=== PATIENT | male | born 1940 | race Caucasian/White ===

== ENCOUNTER → 2020-02-16 | Outpatient (CLI) | payer OTHER ==
--- NOTE | 2020-02-16 16:34 | CT ---
EXAMINATION TYPE: CT abdomen wo con DATE OF EXAM: 02/16/2020 COMPARISON: None HISTORY: 79-year-old male Abdominal pain after eating. TECHNIQUE: Contiguous axial scanning of the abdomen without IV contrast. Coronal and sagittal reconst ructions performed. CT DLP: 170 mGycm Automated exposure control for dose reduction was used. FINDINGS: Exam is very limited due to technique active appearance with a possibility of subcutaneous and intra- abdominal fat. Further limitation due to lack of IV contrast. There is pectus excavatum deformity. Strandy atelectasis or scarring in the lower lungs. 7 mm calcified granuloma left base. No pleural ef fusion. Some surgical material at the GE junction level. There is some type of heterogeneous low-density lesion along the periphery of the right hepatic dome measuring 2.7 x 1.7 cm. Inferiorly and superiorly, it may have a subcapsular location. Some internal fat density also seems to be present. Noncontrast appearance of the gallbladder and spleen show no gross abnormality. Mild diffuse low density thickening of the left adrenal gland, probably adrenal hyperplasia. Right adrenal gland shows no gross abnormality. Some vascular calcifications involving both kidneys. On the left, there is a 6 mm cortical hypodensit y posteriorly to small for accurate CT characterization, probable cyst. There are moderate prostatic calcifications abdominal aorta and visualized common iliac arteries with ectasia up to 2.5 cm. No dilated small bowel, free fluid, or free air seen. Mild to moderate stool. Suboptimal assessment for lymphadenopathy due to paucity of fat and lack of IV contrast. Oral contras t was administered. It has only progressed to the mid small bowel level. Pelvis not imaged. Osteopenia. Facet arthropathy lower lumbar spine. IMPRESSION: 1. VERY LIMITED ASSESSMENT DUE TO CACHECTIC STATE (CORRELATE FOR HISTORY OF WEIGHT LOSS) WITH SEVERE PAUCITY OF SUBCUTANEOUS AND INTRA-ABDOMINAL FAT AND LACK OF IV CONTRAST. 2. METALLIC DENSITY AT THE GE JUNCTION SUGGESTS PRIOR SURGERY HERE. CORRELATE WITH PATIENT'S SURGICAL AND MEDICAL HISTORY. 3. A 2.7 X 1.7 CM LESION ALONG THE PERIPHERY OF THE RIGHT HEPATIC DOME. SOME IMAGES SUGGEST A SUBCAPS ULAR LOCATION AND THERE IS ALSO SOME FAT DENSITY WITHIN. CONSIDER SEQUELA OF REMOTE INJURY. SIX-MONTH FOLLOW-UP CAN REASSESS. 4. THERE MAY BE LEFT ADRENAL HYPERPLASIA GIVEN LOW DENSITY THICKENING.
== END | disposition home or self-care (01) ==
LOC: RADCTMAIN 15:13
DX: K76.89 Other specified diseases of liver (principal); R64 Cachexia
CPT/HCPCS: 74150; Q9967

== ENCOUNTER 2020-03-20 12:02 | Inpatient (IN) | payer OTHER, MEDICARE ==
[2020-03-20] MEDS ORDERED: SODIUM CHLORIDE 0.9% 1,000 ML IV STA ×2 (12:26)
--- NOTE | 2020-03-20 12:50 | XR ---
EXAMINATION TYPE: XR chest 2V DATE OF EXAM: 03/20/2020 COMPARISON: 07/07/2013 HISTORY: Shortness of breath TECHNIQUE: Frontal and lateral views of the chest are obtained. FINDINGS: Scattered senescent parenchymal changes noted. Hyperinflation compatible with COPD. Severe upper lobe emphysematous change and parenchymal scarring left apical region. Increasing masslike area of opacity right suprahilar region may reflect pneumonia however underlying neoplasm is not excluded. CT correlation advised. Heart size is stable. Mediastinal structures are stable and grossly unremarkable. No evidence for hilar prominence. Degenerative changes dorsal spine. IMPRESSION: 1. Increasing masslike area of opacity right suprahilar region may reflect pneumonia however underlyi ng neoplasm is not excluded. CT correlation advised.
[2020-03-20 12:56] LABS: Basophils # (A) 0.1 k/uL (0-0.2); Basophils % (A) 0 %; Eosinophils # (A) 0.1 k/uL (0-0.7); Eosinophils % (A) 0 %; HCT 45.5 % (39.0-53.0); HGB 14.5 gm/dL (13.0-17.5); Lymphocytes # (A) 0.6 k/uL (1.0-4.8); Lymphocytes % (A) 3 %; MCH 31.5 pg (25.0-35.0); MCHC 31.9 g/dL (31.0-37.0); MCV 98.5 fL (80.0-100.0); Mean Platelet Volume 7.7; Monocytes # (A) 1.3 k/uL (0-1.0); Monocytes % (A) 6 %; Neutrophils # (A) 20.9 k/uL (1.3-7.7); Neutrophils % (A) 90 %; Platelet Count 316 k/uL (150-450); RBC 4.62 m/uL (4.30-5.90); RDW 12.8 % (11.5-15.5); WBC 23.2 k/uL (3.8-10.6)
[2020-03-20 13:07] LABS: Albumin 3.5 g/dL (3.5-5.0); Calcium 8.8 mg/dL (8.4-10.2); Magnesium 2.6 mg/dL (1.6-2.3); Potassium 4.9 mmol/L (3.5-5.1); Total Bilirubin 1.4 mg/dL (0.2-1.3); Total Protein 6.8 g/dL (6.3-8.2)
--- NOTE | 2020-03-20 13:21 | ED ---
SOB HPI - General Chief Complaint: Shortness of Breath Stated Complaint: ALIDA Time Seen by Provider: 03/20/20 12:02 Source: patient, EMS, RN notes reviewed, old records reviewed Mode of arrival: EMS Limitations: physical limitation - History of Present Illness Initial Comments: This is a 80-year-old male with a history of COPD among other problems who pr esents with complaints of breathing for past several days. Is brought in by EMS today. He she was found to have saturations in the 70s. After 2 updrafts and IV steroids and did improve somewhat. He states he is feeling somewhat better though he still short of breath. He denies any overt fevers chills sweats he does have a cough he states it does happen this time a year usually with his COPD. MD Complaint: shortness of breath - Related Data Home Medications Medication Instructions Recorded Confirmed Albuterol Sulfate [Proair Hfa] 2 puff INHALATION RT-QID PRN 03/20/20 03/20/20 Aspirin 81 mg PO DAILY 03/20/20 03/20/20 Budesonide/Formoterol Fumarate 2 puff INHALATION RT-BID 03/20/20 03/20/20 [Budesonide-Formoterol 160-4.5] Cetirizine HCl 10 mg PO DAILY 03/20/20 03/20/20 Metoprolol Tartrate [Lopressor] 50 mg PO BID 03/20/20 03/20/20 Sodium Chloride 0.65% Nasal [Deep 2 spray NASAL BID 03/20/20 03/20/20 Sea (Saline)] Tiotropium [place] [Spiriva 2 puff INHALATION RT-DAILY 03/20/20 03/20/20 Respimat] Allergies Allergy/AdvReac Type Severity Reaction Status Date / Time No Known Allergies Allergy Verified 03/20/20 13:31 Review of Systems ROS Statement: Those systems with pertinent positive or pertinent negative responses have been documented in the HPI. ROS Other: All systems not noted in ROS Statement are negative. Past Medical History Past Medical History: Coronary Artery Disease (CAD), COPD, Hypertension Additional Past Medical History / Comment(s): bladder cancer History of Any Multi-Drug Resistant Organisms: None Reported Past Psychological History: No Psychological Hx Reported Smoking Status: Current every day smoker Past Alcohol Use History: None Reported Past Drug Use History: None Reported General Exam - General Exam Comments Initial Comments: This is a 80-year-old well-developed cachectic appearing male who is awake alert oriented 3 Limitations: physical limitation General appearance: alert, in no apparent distress Head exam: Present: atraumatic, normocephalic, normal inspection Eye exam: Present: normal appearance, PERRL, EOMI. Absent: scleral icterus, conjunctival injection, periorbital swelling ENT exam: Present: mucous membranes dry Neck exam: Present: normal inspection. Absent: tenderness, meningismus, lymphadenopathy Respiratory exam: Present: decreased breath sounds. Absent: respiratory distress, wheezes, rales, rhonchi, stridor Cardiovascular Exam: Present: normal rhythm, tachycardia, normal heart sounds. Absent: systolic murmur, diastolic murmur, rubs, gallop, clicks GI/Abdominal exam: Present: soft, normal bowel sounds. Absent: distended, tenderness, guarding, rebound, rigid Extremities exam: Present: normal inspection, full ROM, normal capillary refill. Absent: tenderness, pedal edema, joint swelling, calf tenderness Back exam: Present: normal inspection Neurological exam: Present: alert, oriented X3, CN II-XII intact Psychiatric exam: Present: normal affect, normal mood Skin exam: Present: warm, dry, intact, normal color. Absent: rash Course Vital Signs 03/20/20 03/20/20 03/20/20 12:04 12:30 13:00 Temperature 97 F L Pulse Rate 125 H 105 H 94 Respiratory 26 H Rate Blood Pressure 113/81 113/81 106/68 O2 Sat by Pulse 93 L 98 98 Oximetry - Reevaluation(s) Reevaluation #1: 03/20/20 14:31 He lactic acid elevation is likely on the basis of dehydration though infectious processes not ruled out Medical Decision Making - Medical Decision Making Patient did get some relief after the initial treatment I did discuss the findings with him the patient will be admitted with further evaluation. I did discuss case with Dr. Perkins. Patient did report that he had a lot of weight loss over last 6 months and is not exactly sure why he has been treated outpatient and evaluated outpatient less far - Lab Data Result diagrams: 03/20/20 12:29 03/20/20 12:29 Lab Results 03/20/20 03/20/20 03/20/20 Range/Units 12:29 12:29 12:29 WBC 23.2 H (3.8-10.6) k/uL RBC 4.62 (4.30-5.90) m/uL Hgb 14.5 (13.0-17.5) gm/dL Hct 45.5 (39.0-53.0) % MCV 98.5 (80.0-100.0) fL MCH 31.5 (25.0-35.0) pg MCHC 31.9 (31.0-37.0) g/dL RDW 12.8 (11.5-15.5) % Plt Count 316 (150-450) k/uL MPV 7.7 Neutrophils % 90 % Lymphocytes % 3 % Monocytes % 6 % Eosinophils % 0 % Basophils % 0 % Neutrophils # 20.9 H (1.3-7.7) k/uL Lymphocytes # 0.6 L (1.0-4.8) k/uL Monocytes # 1.3 H (0-1.0) k/uL Eosinophils # 0.1 (0-0.7) k/uL Basophils # 0.1 (0-0.2) k/uL PT 13.3 H (9.0-12.0) sec INR 1.3 H (<1.2) APTT 23.7 (22.0-30.0) sec Sodium 137 (137-145) mmol/L Potassium 4.9 (3.5-5.1) mmol/L Chloride 103 (98-107) mmol/L Carbon Dioxide 16 L (22-30) mmol/L Anion Gap 18 mmol/L BUN 75 H (9-20) mg/dL Creatinine 1.55 H (0.66-1.25) mg/dL Est GFR (CKD-EPI)AfAm 49 (>60 ml/min/1.73 sqM) Est GFR (CKD-EPI)NonAf 42 (>60 ml/min/1.73 sqM) Glucose 143 H (74-99) mg/dL Plasma Lactic Acid Deniz (0.7-2.0) mmol/L Calcium 8.8 (8.4-10.2) mg/dL Magnesium 2.6 H (1.6-2.3) mg/dL Total Bilirubin 1.4 H (0.2-1.3) mg/dL AST 31 (17-59) U/L ALT 25 (4-49) U/L Alkaline Phosphatase 118 (38-126) U/L Creatine Kinase 41 L (55-170) U/L Troponin I (0.000-0.034) ng/mL NT-Pro-B Natriuret Pep pg/mL Total Protein 6.8 (6.3-8.2) g/dL Albumin 3.5 (3.5-5.0) g/dL 03/20/20 03/20/20 03/20/20 Range/Units 12:29 12:29 12:29 WBC (3.8-10.6) k/uL RBC (4.30-5.90) m/uL Hgb (13.0-17.5) gm/dL Hct (39.0-53.0) % MCV (80.0-100.0) fL MCH (25.0-35.0) pg MCHC (31.0-37.0) g/dL RDW (11.5-15.5) % Plt Count (150-450) k/uL MPV Neutrophils % % Lymphocytes % % Monocytes % % Eosinophils % % Basophils % % Neutrophils # (1.3-7.7) k/uL Lymphocytes # (1.0-4.8) k/uL Monocytes # (0-1.0) k/uL Eosinophils # (0-0.7) k/uL Basophils # (0-0.2) k/uL PT (9.0-12.0) sec INR (<1.2) APTT (22.0-30.0) sec Sodium (137-145) mmol/L Potassium (3.5-5.1) mmol/L Chloride (98-107) mmol/L Carbon Dioxide (22-30) mmol/L Anion Gap mmol/L BUN (9-20) mg/dL Creatinine (0.66-1.25) mg/dL Est GFR (CKD-EPI)AfAm (>60 ml/min/1.73 sqM) Est GFR (CKD-EPI)NonAf (>60 ml/min/1.73 sqM) Glucose (74-99) mg/dL Plasma Lactic Acid Deniz 3.2 H* (0.7-2.0) mmol/L Calcium (8.4-10.2) mg/dL Magnesium (1.6-2.3) mg/dL Total Bilirubin (0.2-1.3) mg/dL AST (17-59) U/L ALT (4-49) U/L Alkaline Phosphatase (38-126) U/L Creatine Kinase (55-170) U/L Troponin I <0.012 (0.000-0.034) ng/mL NT-Pro-B Natriuret Pep 1790 pg/mL Total Protein (6.3-8.2) g/dL Albumin (3.5-5.0) g/dL - EKG Data -: EKG Interpreted by Me EKG shows normal: sinus rhythm (Sinus tachycardia rate 120 AR interval 128 QRS 76 QT since QTC 364/[address] configuration.) - Radiology Data Radiology results: report reviewed (I did review the imaging and report evidence a right upper lobe infiltrate cancer is suspected in the differential.), image reviewed Critical Care Time Critical Care Time: Yes Total Critical Care Time: 31 Critical Care Time: 31 minutes of critical care time which includes initial presentation with history physical labs x-rays discussed with paramedics upon arrival. Reevaluation the patient response to therapy review of old charting discussed with the admitting physician admission orders and documentation of the above Disposition Clinical Impression: Acute exacerbation of chronic obstructive pulmonary disease, Right upper lobe pneumonia, Dehydration, Lactic acidosis, Renal insufficiency syndrome, Failure to thrive, History of bladder cancer Disposition: ADMITTED IP TO THIS HOSP Condition: Fair Referrals: [facility],Clinic [Primary Care Provider] - 1-2 days
[2020-03-20 13:29] LABS: INR 1.3 (<1.2); Partial Thromboplastin Time 23.7 sec (22.0-30.0); Prothrombin Time 13.3 sec (9.0-12.0)
[2020-03-20] MEDS ORDERED: cefTRIAXone IN SWFI 1,000 MG/10 ML SYRINGE IVP STA (13:52)
[2020-03-20] MEDS ORDERED: PNEUMONIA PROTOCOL UTILIZED 1 EACH MISC PO PRN (14:37)
[2020-03-20] MEDS ORDERED: AZITHROMYCIN 500 MG in SODIUM CHLORIDE 0.9% 250 ML IVPB STA (14:58)
[2020-03-20 15:08] LABS: INR 1.1 (<1.2); Partial Thromboplastin Time 22.2 sec (22.0-30.0); Prothrombin Time 11.4 sec (9.0-12.0)
[2020-03-20 15:12] LABS: D-Dimer 4.98 mg/L FEU (<0.60)
[2020-03-20 15:17] LABS: SARS-CoV-2 RNA Rapid Abbott Not Detected (Not Detectd)
[2020-03-20] MEDS: IPRATROPIUM-ALBUTEROL 3 ML NEB INHALATION SCH ×2 (15:41→18:55)
[2020-03-20 15:49] LABS: C Reactive Protein 315.6 mg/L (<10.0); Magnesium 2.5 mg/dL (1.6-2.3)
--- NOTE | 2020-03-20 16:13 | CT ---
EXAMINATION TYPE: CT angio chest DATE OF EXAM: 03/20/2020 3:37 PM COMPARISON: Chest x-ray earlier today and older study 2013 HISTORY: Elevated d-dimer. CT DLP: 160.4 mGycm Automated exposure control for dose reduction was used. CONTRAST: CTA scan of the thorax is performed with IV Contrast, patient injected with 70 mL of Isovue 370, pulm onary embolism protocol. MIP images are created and reviewed. FINDINGS: LUNGS: Advanced underlying emphysematous change with pulmonary fibrotic change in the upper lungs. Co rresponding x-ray abnormality there is masslike low dense consolidation in the anterior inferior aspe ct right upper lobe. Some transversing small arterial vessels and patchy aeration is thought present. There is however more suspicious anterior right hilar mass or masslike consolidation inferior to thi s measuring 2.7 x 2.2 cm on image 91 abutting the mediastinum. No crossing vessels at this level note d. MEDIASTINUM: There is satisfactory enhancement of the pulmonary artery and its branches, there is no CT evidence for pulmonary embolism. There are no greater than 1 cm hilar or mediastinal lymph nodes . No cardiomegaly or pericardial effusion is seen. Coronary artery calcifications are present. Enhancement of thoracic aorta without aneurysm or dissect ion. Pectus excavatum deformity. Mass effect and right atrium noted. OTHER: Surgical clips near gastroesophageal junction. 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 Follow-up ultrasound advised to assess for AAA. IMPRESSION: 1. No CT evidence for acute pulmonary embolism. 2. Advanced emphysematous change with pulmonary fibrotic change greatest in the upper lungs. Do suspe ct some focal consolidation and/or atelectasis anterior inferior right upper lobe. More suspicious an terior right midlung mass or masslike consolidation noted. Underlying neoplasm is not excluded. Consi elizabeth follow-up PET/CT after treatment.
[2020-03-20] MEDS: SODIUM CHLORIDE 0.9% 1,000 ML IV SCH ×2 (17:29→22:50)
[2020-03-20] MEDS: SYMBICORT 160-4.5 MCG INHALER INHALATION SCH (18:55)
[2020-03-20] MEDS ORDERED: HYDROcodone/APAP 5-325MG 1 EACH TAB PO PRN (18:57)
[2020-03-20] MEDS ORDERED: TEMAZEPAM 15 MG CAP PO PRN (18:57)
[2020-03-20] MEDS ORDERED: Potassium Replacement Protocol 1 EACH MISC MISCELLANE PRN (19:18)
[2020-03-20] MEDS ORDERED: Magnesium Replacement Protocol 1 EACH MISC MISCELLANE PRN (19:18)
[2020-03-20] MEDS ORDERED: SODIUM CHLORIDE 0.9% 500 ML 500 ML IV ONE (19:23)
[2020-03-20] MEDS: ENOXAPARIN 40 MG/0.4 ML SYRINGE SQ SCH (19:30)
[2020-03-20] MEDS: methylPREDNISolone SOD SUCCI 125 MG/2 ML VIAL IV SCH (19:30)
--- NOTE | 2020-03-20 20:27 | HP ---
HISTORY AND PHYSICAL DATE OF SERVICE: 03/20/2020 CHIEF COMPLAINT: Shortness of breath. HISTORY OF PRESENT ILLNESS: This 80-year-old gentleman with a past medical history of COPD, CAD, hypertension, history of difficulty in breathing, being followed by a [facility] in the outpatient setting, was not feeling well over the past several weeks. The patient had increasing shortness of breath. The patient was also unable to eat. The patient lost about 50 pounds in the last 2 years. The patient is extremely emaciated. His current BMI is only 13.2. In the ER, the patient had a chest x-ray and subsequently a CT scan of the chest which showed significant bilateral pneumonia, right more than the left, as well as significant changes of COPD as well as clips near the GE junction, and some aneurysmal dilatation in the abdominal aorta was also noted. Suspicious 2.5 cm, 2.2 mm right hilar mass was also suspected. The patient was admitted for further evaluation and treatment. There is no history of any fever, rigor or chills. No history of headache, loss of consciousness. No history of any contact with the COVID infection, either. PAST MEDICAL HISTORY: History of CAD, COPD, hypertension, history of bladder cancer with urostomy. MEDICATIONS: Spiriva, sodium chloride, Lopressor, cetirizine, Symbicort, aspirin and albuterol. ALLERGIES: NONE. FAMILY HISTORY: No history of heart disease or strokes in the family. SOCIAL HISTORY: History of smoking. Occasional alcohol intake. REVIEW OF SYSTEMS: ENT: Diminished hearing. Diminished vision. CARDIOVASCULAR SYSTEM: As mentioned earlier. RESPIRATORY SYSTEM: As mentioned earlier. GI: No nausea, vomiting. : No dysuria or retention. NERVOUS SYSTEM: No numbness, weakness. ALLERGY/IMMUNOLOGY: No asthma, hayfever. MUSCULOSKELETAL: As mentioned earlier. HEMATOLOGY/ONCOLOGY: No history of anemia. ENDOCRINE: No history of diabetes, hypothyroidism. CONSTITUTIONAL: As mentioned earlier. DERMATOLOGY: Negative. RHEUMATOLOGY: Negative. PSYCHIATRY: As mentioned earlier. PHYSICAL EXAMINATION: Patient alert and oriented x3. Pulse 82, blood pressure 91/50, respiration 18, temperature 97.8, pulse ox 98% on 3 L. HEENT: Conjunctivae normal. NECK: No jugular venous distention. CARDIOVASCULAR SYSTEM: S1, S2 muffled. RESPIRATORY SYSTEM: Breath sounds diminished at the bases. A few scattered rhonchi and crackles. Expiratory wheezing also present. ABDOMEN: Soft, non-tender. No mass palpable. LEGS: No edema. No swelling. NERVOUS SYSTEM: Higher functions as mentioned earlier. Moves all 4 limbs. No focal motor or sensory deficit. LYMPHATICS: No lymph node palpable in neck, axillae or groin. SKIN: No ulcer, rash, bleeding. JOINTS: No active deforming arthropathy. LABS: WBC 23.2, INR 1.3, and D-dimer is 4.98. Lactic acid is 3.2. CRP is 315. COVID-19 rapid test is negative. Influenza is negative. ASSESSMENT: 1. Chronic obstructive pulmonary disease, acute exacerbation, with acute bilateral pneumonia, right more than the left, possibly Gram-negative with possible sepsis, present on admission. 2. Rule out COVID-19. 3. Increased creatinine with acute renal failure, prerenal acute tubular necrosis. 4. Elevated lactic acid, possibly secondary to sepsis. 5. Elevated D-dimer without any evidence of pulmonary embolism. 6. Increased white count, possibly secondary to sepsis. 7. Significant weight loss, possibly secondary to malignancy. 8. Severe protein-calorie malnutrition with body mass index of 13.2. 9. History of coronary artery disease. 10.History of chronic obstructive pulmonary disease. 11.History of hypertension. 12.History of bladder cancer with urostomy. 13.History of tachycardia. 14.History of ruptured duodenal ulcer at age of 31. 15.History of nicotine dependence. RECOMMENDATIONS AND DISCUSSION: In this 80-year-old gentleman who presented with multiple medical issues, at this time I recommend to continue the current medications, continue with symptomatic treatment. Otherwise, we will initiate broad-spectrum IV antibiotics and bronchodilators. I would also recommend evaluation by Dr. Harmon for possible bronchoscopy and other evaluations as well. Dietary evaluation, nutrition supplements. DVT prophylaxis. COVID-19 has been negative. I would also recommend infectious disease evaluation regarding the patient who had some raised inflammatory parameters which could very well be due to pneumonia, but we will continue to monitor. The prognosis is guarded because of multiple complex medical issues. Further recommendations to follow. A copy of this dictation is being forwarded to KRUNAL, Dr. Brandon, who is the primary physician. MMODL / MACN: [id number] /
[2020-03-20] MEDS: METOPROLOL TARTRATE 50 MG TAB PO SCH (20:44)
[2020-03-20 21:31] LABS: Glucose,Whole Blood 241 mg/dL (75-99)
[2020-03-20] MEDS: PIPERACILLIN-TAZOBACTAM 3.375 GM in SODIUM CHLORIDE 0.9% 100 ML IVPB SCH (21:33)
[2020-03-20] MEDS: INSULIN ASPART (NovoLOG) 100 UNIT/ML VIAL SQ SCH (21:33)
[2020-03-20] MEDS: SODIUM CHLORIDE 0.65% NASAL SPRAY 44 ML BTL NASAL SCH (21:34)
[2020-03-21 00:53] LABS: Ferritin 1808.3 ng/mL (22.0-322.0)
[2020-03-21] MEDS: methylPREDNISolone SOD SUCCI 125 MG/2 ML VIAL IV SCH ×5 (00:54→23:54)
[2020-03-21] MEDS: IPRATROPIUM-ALBUTEROL 3 ML NEB INHALATION SCH ×5 (03:15→20:14)
[2020-03-21] MEDS: PIPERACILLIN-TAZOBACTAM 3.375 GM in SODIUM CHLORIDE 0.9% 100 ML IVPB SCH ×3 (04:57→21:12)
[2020-03-21 06:58] LABS: Basophils % (A) 0 %; Eosinophils % (A) 0 %; HCT 33.3 % (39.0-53.0); Lymphocytes # (A) 0.3 k/uL (1.0-4.8); Lymphocytes % (A) 1 %; MCH 31.4 pg (25.0-35.0); MCHC 31.6 g/dL (31.0-37.0); MCV 99.4 fL (80.0-100.0); Mean Platelet Volume 7.2; Monocytes # (A) 0.4 k/uL (0-1.0); Monocytes % (A) 2 %; Neutrophils # (A) 17.9 k/uL (1.3-7.7); Neutrophils % (A) 96 %; Platelet Count 284 k/uL (150-450); RBC 3.35 m/uL (4.30-5.90); RDW 13.5 % (11.5-15.5); WBC 18.6 k/uL (3.8-10.6)
[2020-03-21 07:05] LABS: HGB 10.5 gm/dL (13.0-17.5)
[2020-03-21] MEDS: IOPAMIDOL CONTRAST (ORAL USE) VIAL PO PRN ×2 (07:12→08:18)
[2020-03-21] MEDS ORDERED: NON FORMULARY DRUG (Tiotropium Bromide [Spiriva Respimat] 4 GM Mist.Inhal) INHALATION SCH (08:00)
[2020-03-21] MEDS: INSULIN ASPART (NovoLOG) 100 UNIT/ML VIAL SQ SCH ×4 (08:16→21:11)
[2020-03-21] MEDS: METOPROLOL TARTRATE 50 MG TAB PO SCH ×2 (08:16→20:37)
[2020-03-21] MEDS: SODIUM CHLORIDE 0.65% NASAL SPRAY 44 ML BTL NASAL SCH ×2 (09:20→21:12)
[2020-03-21] MEDS: ENOXAPARIN 40 MG/0.4 ML SYRINGE SQ SCH (09:20)
[2020-03-21] MEDS: LORATADINE 10 MG TAB PO SCH (09:20)
[2020-03-21] MEDS: ASPIRIN 81 MG PO SCH (09:20)
[2020-03-21] MEDS: SYMBICORT 160-4.5 MCG INHALER INHALATION SCH ×2 (09:24→20:14)
--- NOTE | 2020-03-21 09:26 | XR ---
EXAMINATION TYPE: XR chest 2V DATE OF EXAM: 03/21/2020 COMPARISON: 03/20/2020 HISTORY: Shortness of breath TECHNIQUE: Frontal and lateral views of the chest are obtained. FINDINGS: Scattered senescent parenchymal changes noted. Hyperinflation compatible with COPD. Apical scarring. Right Suprahilar infiltrate is again noted. Underlying mass is not excluded. Heart size is stable. Mediastinal structures are stable and grossly unremarkable. No evidence for hilar prominence. Degenerative changes dorsal spine. IMPRESSION: 1. Right Suprahilar infiltrate is again noted. Underlying mass is not excluded.
--- NOTE | 2020-03-21 09:41 | CT ---
EXAMINATION TYPE: CT abdomen pelvis wo con DATE OF EXAM: 03/21/2020 COMPARISON: 02/16/2020 HISTORY: Unexplained weight loss. CT DLP: 279.4 mGycm Examination of the solid and hollow viscera is limited given the lack of contrast. FINDINGS: LUNG BASES: Severe pectus excavatum deformity. Myeloma left lower lobe. No evidence for nodule. No ev idence for infiltrate. LIVER/GB: The gallbladder is unremarkable. Nonspecific hepatic lesion at the dome of the liver measur es approximately 2.1 cm in greatest dimension. PANCREAS: No pancreatic mass identified. No inflammatory process seen. SPLEEN: No evidence for splenomegaly. No intrasplenic lesions seen. ADRENALS: No adrenal nodules identified. Left adrenal hyperplasia noted. KIDNEYS: Contrast is seen within the renal collecting systems from a recent CTA of the chest. No evid ence for renal mass. No nephrolithiasis. No hydronephrosis. BOWEL: No evidence of bowel obstruction. No inflammatory process. Surgical changes in the rectosigmo id region. Moderate fecal stasis. Lymph nodes: No evidence for adenopathy greater than 1 cm. Abdominal aorta: Diffuse Atheromatous changes seen. No evidence for aneurysm. Genital organs: No significant abnormality. Other: The patient is markedly cachectic. Now prosthesis is noted. IMPRESSION: 1. Patient is markedly cachectic limiting evaluation. 2. No definite acute intra-abdominal process. Moderate fecal stasis seen.
[2020-03-21 10:00] LABS: African American GFR (CKD) 66.3 (60.0-200.0); Anion Gap 6.7 mmol/L (4.00-12.00); BUN/Creat Ratio 49.17 Ratio (12.00-20.00); C Reactive Protein 23.4 mg/dL (0.0-0.8); Carbon Dioxide 22.3 mmol/L (21.6-31.8); Magnesium 2.3 mg/dL (1.5-2.4); Non-African American GFR(CKD) 57.2 (60.0-200.0); Potassium 3.8 mmol/L (3.5-5.5)
[2020-03-21 11:22] LABS: Glucose,Whole Blood 229 mg/dL (75-99)
[2020-03-21] MEDS: THIAMINE 100 MG TAB PO SCH (11:59)
[2020-03-21] MEDS: MULTIVITAMINS, THERA 1 EACH TAB PO SCH (11:59)
[2020-03-21] MEDS: FOLIC ACID 1 MG TAB PO SCH (11:59)
[2020-03-21 14:08] VITALS: BMI 13.1
--- NOTE | 2020-03-21 14:35 | P.CNPUL ---
History of Present Illness Consult date: 03/21/20 Requesting physician: Kinza Perkins Reason for consult: dyspnea, abnormal CXR/CT Chief complaint: Shortness of breath, cough, congestion History of present illness: This is a pleasant frail, cachectic appearing 80-year-old gentleman who follows with Bridget Bradford at the [facility]. He has a history of coronary artery disease, hypertension, chronic obstructive pulmonary disease. He has a 60 year pack per day smoking history. He is maintained on Symbicort, Spiriva, pro-air in the outpatient setting. He has been having increasing shortness of breath cough and congestion. He admits to a 30 pound weight loss over the past year. He is currently 45 kg. Denies any hemoptysis. CT angiogram ruled out pulmonary embolism. There is advanced emphysematous changes with pulmonary fibrotic ch anges greatest in the upper lobes. Some focal consolidation and atelectasis anterior inferior right upper lobe. More suspicious anterior right midlung mass or masslike consolidation noted. Neoplasm not excluded. He is seen today in consultation on the regular medical floor. He is currently sitting up in a chair at the bedside. Awake and alert in no acute distress. Currently maintaining O2 saturations in the mid 90s on 3 L/m per nasal cannula. White count 18.6. Hemoglobin 10.5. Lymphocytes 0.3. D-dimer 3.87. Sodium 142. Potassium 3.8. Creatinine 1.2. Ferritin level MDCCCVIII. LDH 567. C-reactive protein 315 down to 23 today. Pro-calcitonin 3.82. Influenza screen negative. Coronavirus screen negative. He has been initiated on DuoNeb inhalations, Symbicort, IV Solu-Medrol. Antibiotics in the form of Zosyn. Review of Systems REVIEW OF SYSTEMS: CONSTITUTIONAL: Positive for 30 pound weight loss. EYES: Denies change in vision. EARS, NOSE, MOUTH, THROAT: Denies headaches, denies sore throat. CARDIOVASCULAR: Denies chest pain, palpitations or syncopal episodes. RESPIRATORY: Positive for shortness of breath, cough, congestion no hemoptysis. GASTROINTESTINAL: Denies change in appetite, denies abdominal pain GENITOURINARY: Denies hematuria, denies infections. MUSKULOSKELETAL: Denies pain, denies swelling. INTEGUMENTARY: Denies rash, denies eczema. NEUROLOGICAL: Denies recent memory loss, no recent seizure activity. PSYCHIATRIC: Denies anxiety, denies depression. HEMATOLOGIC/LYMPHATIC: Denies anemia, denies enlarged lymph nodes. Past Medical History Past Medical History: Coronary Artery Disease (CAD), COPD, Hypertension Additional Past Medical History / Comment(s): Pt states past several days increase difficulty breathing/occasional double vision with r eye/stomach pain past few months and had a cat scan approximately one month ago but never got the results, bladder cancer with urostomy, tachycardia-pt does not recall type, ruptured duodenal ulcer at age 31. History of Any Multi-Drug Resistant Organisms: None Reported Past Surgical History: Bladder Surgery, Orthopedic Surgery Additional Past Surgical History / Comment(s): Bladder removed/urostomy, laparotomy for ruptured duodenal ulcer/pt unsure if part of stomach was removed, colonoscopies, penile implant, bilateral cataract removals/lens implants, L hip fracture with surgical repair/hardware. Past Anesthesia/Blood Transfusion Reactions: No Reported Reaction Additional Past Anesthesia/Blood Transfusion Reaction / Comment(s): Pt is uncertain if he has received blood in the past. Smoking Status: Current every day smoker - Past Family History Mother Family Medical History: No Reported History Additional Family Medical History / Comment(s): Mother lived into her 80s. Father Family Medical History: No Reported History Additional Family Medical History / Comment(s): Father lived into his 80s. Medications and Allergies Home Medications Medication Instructions Recorded Confirmed Type Albuterol Sulfate [Proair Hfa] 2 puff INHALATION RT-QID PRN 03/20/20 03/20/20 History Aspirin 81 mg PO DAILY 03/20/20 03/20/20 History Budesonide/Formoterol Fumarate 2 puff INHALATION RT-BID 03/20/20 03/20/20 History [Budesonide-Formoterol 160-4.5] Cetirizine HCl 10 mg PO DAILY 03/20/20 03/20/20 History Metoprolol Tartrate [Lopressor] 50 mg PO BID 03/20/20 03/20/20 History Sodium Chloride 0.65% Nasal [Deep 2 spray NASAL BID 03/20/20 03/20/20 History Sea (Saline)] Tiotropium [place] [Spiriva 2 puff INHALATION RT-DAILY 03/20/20 03/20/20 History Respimat] Allergies Allergy/AdvReac Type Severity Reaction Status Date / Time No Known Allergies Allergy Verified 03/20/20 13:31 Physical Exam Vitals: Vital Signs Temp Pulse Pulse Resp BP BP Pulse Ox 03/21/20 12:45 97.8 F 67 16 84/42 97 03/21/20 12:32 85 03/21/20 12:18 84 03/21/20 07:45 97.6 F 69 18 87/39 96 03/21/20 01:14 97.5 F L 73 12 93/43 98 03/20/20 21:41 77 92/49 03/20/20 20:34 91/46 03/20/20 19:49 97.6 F 87 16 77/46 99 03/20/20 19:10 90 18 03/20/20 18:56 92 18 03/20/20 17:55 18 03/20/20 17:16 97.8 F 82 18 91/50 98 03/20/20 16:26 98.1 F 86 20 93/59 99 03/20/20 15:50 85 18 03/20/20 15:44 83 18 03/20/20 14:35 95 20 105/69 98 Intake and Output 03/20/20 03/21/20 03/21/20 22:59 06:59 14:59 Intake Total 300 Output Total 400 425 400 Balance -400 -425 -100 Intake: Oral 300 Output: Urine 400 425 400 Other: Weight 45.359 kg 45.359 kg GENERAL EXAM: Alert, frail, cachectic, 80-year-old gentleman, on 3 L nasal cannula, comfortable in no apparent distress. HEAD: Normocephalic. EYES: Normal reaction of pupils, equal size. NOSE: Clear with pink turbinates. THROAT: No erythema or exudates. NECK: No masses, no JVD. CHEST: No chest wall deformity. LUNGS: Equal air entry with bilateral end expiratory wheeze, few scattered rhonchi, diminished. CVS: S1 and S2 normal with no audible murmur, regular rhythm. ABDOMEN: No hepatosplenomegaly, normal bowel sounds, no guarding or rigidity. SPINE: No scoliosis or deformity SKIN: No rashes CENTRAL NERVOUS SYSTEM: No focal deficits, tone is normal in all 4 extremities. EXTREMITIES: There is no peripheral edema. No clubbing, no cyanosis. Peripheral pulses are intact. Results - Laboratory Findings CBC and BMP: 11/26/20 06:30 03/21/20 06:30 PT/INR, D-dimer PT 11.4 sec (9.0-12.0) 03/20/20 14:35 INR 1.1 (<1.2) 03/20/20 14:35 D-Dimer 3.87 mg/L FEU (<0.60) H 03/21/20 06:30 Abnormal lab findings: Abnormal Labs 03/20/20 03/20/20 03/20/20 12:29 12:29 12:29 WBC 23.2 H RBC Hgb Hct Neutrophils # 20.9 H Lymphocytes # 0.6 L Monocytes # 1.3 H PT 13.3 H INR 1.3 H D-Dimer Chloride Carbon Dioxide 16 L BUN 75 H Creatinine 1.55 H Est GFR (CKD-EPI)NonAf BUN/Creatinine Ratio Glucose 143 H POC Glucose (mg/dL) Plasma Lactic Acid Deniz Calcium Magnesium 2.6 H Ferritin Total Bilirubin 1.4 H Creatine Kinase 41 L C-Reactive Protein Procalcitonin 03/20/20 03/20/20 03/20/20 12:29 14:35 14:35 WBC RBC Hgb Hct Neutrophils # Lymphocytes # Monocytes # PT INR D-Dimer 4.98 H Chloride Carbon Dioxide BUN Creatinine Est GFR (CKD-EPI)NonAf BUN/Creatinine Ratio Glucose POC Glucose (mg/dL) Plasma Lactic Acid Deniz 3.2 H* Calcium Magnesium 2.5 H Ferritin 1808.3 H Total Bilirubin Creatine Kinase C-Reactive Protein 315.6 H Procalcitonin 03/20/20 03/20/20 03/21/20 14:35 21:30 06:30 WBC 18.6 H RBC 3.35 L Hgb 10.5 L D Hct 33.3 L Neutrophils # 17.9 H Lymphocytes # 0.3 L Monocytes # PT INR D-Dimer Chloride Carbon Dioxide BUN Creatinine Est GFR (CKD-EPI)NonAf BUN/Creatinine Ratio Glucose POC Glucose (mg/dL) 241 H Plasma Lactic Acid Deniz Calcium Magnesium Ferritin Total Bilirubin Creatine Kinase C-Reactive Protein Procalcitonin 3.82 H 03/21/20 03/21/20 03/21/20 06:30 06:30 11:20 WBC RBC Hgb Hct Neutrophils # Lymphocytes # Monocytes # PT INR D-Dimer 3.87 H Chloride 113 H Carbon Dioxide BUN 59.0 H Creatinine Est GFR (CKD-EPI)NonAf 57.2 L BUN/Creatinine Ratio 49.17 H Glucose 166 H POC Glucose (mg/dL) 229 H Plasma Lactic Acid Deniz Calcium 8.0 L Magnesium Ferritin Total Bilirubin Creatine Kinase C-Reactive Protein 23.4 H Procalcitonin - Diagnostic Findings Chest x-ray: image reviewed CT scan - chest: image reviewed Assessment and Plan Assessment: 1 Acute hypoxic respiratory failure secondary to masslike consolidation in the anterior inferior aspect of the right upper lobe with some suspected postobstructive pneumonia, anterior right hilar mass measuring 2.7 x 2.2 cm abutting the mediastinum. 2 Acute exacerbation of chronic obstructive pulmonary disease with advanced underlying emphysematous changes and pulmonary fibrotic changes of the upper lobes 3 Chronic and ongoing tobacco dependence of greater than 60 years 4 Unexplained weight loss of approximately 30 pounds 5 Protein calorie malnutrition 6 History of coronary artery disease 7 Hypertension 8 History of bladder cancer with urostomy 9 History of ruptured duodenal ulcer many years ago. 10 Elevated d-dimer and inflammatory markers with coronavirus not detected, PE ruled out Plan: The patient was seen and evaluated by Dr. Haromn Chest x-ray, CAT scans and labs reviewed We'll request interventional radiology to perform fine-needle aspirate of the anterior right lung mass Hold Lovenox Continue Zosyn for now, discontinue azithromycin Continue Symbicort, DuoNeb inhalations, Solu-Medrol Educated regarding the importance of complete smoking cessation Overall prognosis is guarded We will continue to follow and make further recommendations based on his clinical status I, the cosigning physician, performed a history & physical examination of the patient. Lungs sounds with few scattered rhonchi, end expiratory wheeze, diminished. Maintaining good O2 saturations in the 90s on 3 L/m per nasal cannula. I discussed the assessment and plan of care with my nurse practitioner, Kavita Youssef. I attest to the above consultation as dictated by her. Time with Patient: Greater than 30
[2020-03-21] MEDS ORDERED: AZITHROMYCIN 500 MG in SODIUM CHLORIDE 0.9% 250 ML IVPB SCH (16:00)
[2020-03-21 16:28] LABS: Glucose,Whole Blood 305 mg/dL (75-99)
[2020-03-21] MEDS: SODIUM CHLORIDE 0.9% 1,000 ML IV SCH (19:44)
[2020-03-21 21:09] LABS: Glucose,Whole Blood 161 mg/dL (75-99)
--- NOTE | 2020-03-22 02:15 | PN ---
PROGRESS NOTE DATE OF SERVICE: 03/21/2020 This 80-year-old gentleman who was admitted with COPD exacerbation with acute bilateral pneumonia, right more than left, is being closely monitored at this time. A COVID-19 test was negative. Influenza is also negative. The patient being closely monitored at this time. Dr. Harmon seen the patient. The patient also had abdominal pelvis CAT scan also. An anterior right hilar mass was also suspected on the CAT scan. A CAT scan of the abdomen and pelvis was also done which showed markedly cachectic, no definite changes. PAST MEDICAL HISTORY: Reviewed. REVIEW OF SYSTEMS: CARDIOVASCULAR SYSTEM: No angina. RESPIRATORY SYSTEM: As mentioned earlier. GI: As mentioned earlier. : No dysuria. NERVOUS SYSTEM: No numbness or weakness. CURRENT MEDICATIONS: Current medications are reviewed and include: Moffat, DuoNeb, Xanax, aspirin, Symbicort, folic acid, NovoLog, Claritin, Solu-Medrol, Lopressor, multivitamins, Zosyn. PHYSICAL EXAMINATION: Patient is alert and oriented x3. Pulse 88, blood pressure is 84/42, respirations 16, temperature 97.8, pulse ox 94% on 3 L. HEENT: Conjunctivae normal. NECK: No jugular venous distention. CARDIOVASCULAR: S1, S2 muffled. RESPIRATORY: Breath sounds diminished at the bases. A few scattered rhonchi and crackles. ABDOMEN: Soft, nontender. LEGS: No edema, no swelling. NERVOUS SYSTEM: No focal deficits. LABS: D-dimer is 3.87. Other labs are noted. ASSESSMENT: 1. Chronic obstructive pulmonary disease acute exacerbation with acute bilateral pneumonia, right more than left, possibly gram-negative with possible sepsis and acute hypoxic respiratory failure. 2. COVID-19 ruled out. 3. Possible right hilar mass. 4. Increased creatinine with acute renal failure prerenal acute tubular necrosis. 5. Elevated lactic acid, possibly secondary to sepsis. 6. Elevated D-dimer without any evidence of pulmonary embolism. 7. Relative hypotension. 8. Increased WBC possibly secondary sepsis. 9. Significant weight loss possibly secondary to malignancy. 10.Severe protein calorie malnutrition, body mass index of 13.2. 11.History of coronary artery disease. 12.History of chronic obstructive pulmonary disease. 13.Hypertension. 14.History of bladder cancer with urostomy. 15.History of tachycardia. 16.History of ruptured duodenal ulcer at the age of 31. 17.History of nicotine dependence. RECOMMENDATIONS AND DISCUSSION: Recommend to continue current medications, continue symptomatic treatment. Dr. Harmon is planning possible Interventional Radiology fine-needle aspirate of the anterior hilar mass and Lovenox is held and continue with antibiotics. Otherwise I would also recommend serum cortisol in the morning also. Guarded prognosis because of multiple complex medical issues. Further recommendations to follow. MMODL / IJN: [id number] /
[2020-03-22] MEDS: IPRATROPIUM-ALBUTEROL 3 ML NEB INHALATION SCH ×6 (03:11→23:56)
[2020-03-22] MEDS: PIPERACILLIN-TAZOBACTAM 3.375 GM in SODIUM CHLORIDE 0.9% 100 ML IVPB SCH ×3 (06:12→20:44)
[2020-03-22] MEDS: methylPREDNISolone SOD SUCCI 125 MG/2 ML VIAL IV SCH ×3 (06:12→17:05)
[2020-03-22 06:53] LABS: Glucose,Whole Blood 184 mg/dL (75-99)
[2020-03-22] MEDS: SYMBICORT 160-4.5 MCG INHALER INHALATION SCH ×2 (07:34→19:56)
[2020-03-22 07:49] LABS: Basophils % (A) 0 %; Eosinophils % (A) 0 %; HCT 30.4 % (39.0-53.0); HGB 9.6 gm/dL (13.0-17.5); Lymphocytes # (A) 0.3 k/uL (1.0-4.8); Lymphocytes % (A) 2 %; MCH 31.1 pg (25.0-35.0); MCHC 31.4 g/dL (31.0-37.0); Mean Platelet Volume 7.2; Monocytes # (A) 0.4 k/uL (0-1.0); Monocytes % (A) 2 %; Neutrophils # (A) 19.6 k/uL (1.3-7.7); Neutrophils % (A) 96 %; Platelet Count 290 k/uL (150-450); RBC 3.07 m/uL (4.30-5.90); RDW 13.7 % (11.5-15.5); WBC 20.4 k/uL (3.8-10.6)
[2020-03-22] MEDS: METOPROLOL TARTRATE 50 MG TAB PO SCH ×2 (09:04→20:43)
[2020-03-22] MEDS: LORATADINE 10 MG TAB PO SCH (09:05)
[2020-03-22] MEDS: INSULIN ASPART (NovoLOG) 100 UNIT/ML VIAL SQ SCH ×4 (09:05→20:43)
[2020-03-22] MEDS: SODIUM CHLORIDE 0.65% NASAL SPRAY 44 ML BTL NASAL SCH ×2 (09:07→20:44)
--- NOTE | 2020-03-22 10:52 | CONS ---
CONSULTATION DATE OF SERVICE: 03/21/2020. REASON FOR CONSULTATION: COVID. HISTORY OF PRESENT ILLNESS: The patient is 80-year-old male with a past medical history significant for COPD, coronary artery disease. Patient presenting to the ER at [facility] yesterday afternoon for evaluation of increased shortness of breath. The patient's breathing has been getting worse for the last few weeks. Patient also complaining of weight loss almost 30 pounds over the last one year. The patient denies having any chest pain. He did have a cough which is mild to moderate in intensity with occasional sputum production. No hemoptysis. No pleuritic chest pain. No nausea, no vomiting. No choking on the food. No abdominal pain or diarrhea. The patient did have a CT angiogram of the chest which was negative for PE but did show some evidence of emphysematous changes and focal consolidation in the inferior right upper lobe. The patient also had a CT of abdomen and pelvis that did show some fecal stasis. No other acute abnormality. On arrival to the ER the patient was afebrile and no fever has been recorded since then. The patient was mildly hypoxic with saturations of 93% requiring supplemental oxygen. The patient did have a hemoglobin of 14.5, white count 3.2, repeat white count was 18.2 and D-dimer was elevated. Creatinine was normal. CRP was 23.4 and procalcitonin 3.82. Influenza and tinoco PCR was negative. Patient has been admitted to the hospital. The patient was started on Zosyn. Infectious Disease was consulted for further management and concern for possible COVID infection. REVIEW OF SYSTEMS: Positive points have been mentioned in HPI. Rest of systems are negative. PAST MEDICAL HISTORY: Coronary artery disease, COPD, hypertension, history of bladder cancer. PAST SURGICAL HISTORY: No major surgery. SOCIAL HISTORY: Current smoker. No drinking or drug use. FAMILY HISTORY: No pertinent findings noticed. ALLERGIES: No known drug allergies. MEDICATIONS: The patient is currently on DuoNeb, Xanax, Aspirin, Symbicort, folic acid, NovoLog, Claritin, Solu-Medrol, Lopressor, Zosyn, Restoril and vitamin B1. EXAMINATION: VITAL SIGNS: Blood pressure is 84/42 with a pulse of 77, temperature 97.8, he is 97% 3 L nasal cannula. GENERAL DESCRIPTION: An elderly male lying in bed in no distress. No tachypnea or accessory muscles of respiration use. HEENT: Shows pallor. No scleral icterus. Oral mucosa dry. NECK: Trachea central, no thyromegaly. LUNGS: Unlabored breathing, decreased intensity of breath sounds. No wheeze. HEART: S1, S2. Regular rate and rhythm. ABDOMEN: Soft, no tenderness. No guarding or rigidity. EXTREMITIES: No edema of the feet. SKIN EXAMINATION: No rash or mass palpable. NEUROLOGICAL: Patient awake and alert. Oriented times three. Mood and affect normal. LABS: Hemoglobin is 10.5, white count 18.6, admission white count 3.2, BUN of 15, creatinine 1.2, elevated CRP and procalcitonin. CT angiogram of the chest with evidence of right upper lobe pneumonia. DIAGNOSTIC IMPRESSION: Patient admitted to the hospital with increased shortness of breath and cough in this patient who did have elevated white count, CRP, as well as procalcitonin. Presently with right upper lobe pneumonia possible community-acquired or underlying aspiration or gram-negative not entirely excluded. Clinically not behaving as a COVID-19 infection. PLAN: 1. Will obtain sputum for Gram stain, cultures. 2. Zosyn 3.375 grams q.8 hours. 3. We will follow on clinical condition and further adjust medication if needed. Thank you for this consultation. Will follow this patient along with you. MMODL / IJN: [id number] /
[2020-03-22 11:29] LABS: Glucose,Whole Blood 151 mg/dL (75-99)
[2020-03-22 11:43] LABS: African American GFR (CKD) 82.6 (60.0-200.0); Anion Gap 6.9 mmol/L (4.00-12.00); C Reactive Protein 12.6 mg/dL (0.0-0.8); Calcium 8.4 mg/dL (8.7-10.3); Carbon Dioxide 22.1 mmol/L (21.6-31.8); Non-African American GFR(CKD) 71.3 (60.0-200.0); Potassium 3.7 mmol/L (3.5-5.5)
[2020-03-22] MEDS: FOLIC ACID 1 MG TAB PO SCH (11:52)
[2020-03-22] MEDS: THIAMINE 100 MG TAB PO SCH (11:52)
[2020-03-22] MEDS: MULTIVITAMINS, THERA 1 EACH TAB PO SCH (11:52)
[2020-03-22] MEDS: ASPIRIN 81 MG PO SCH (11:52)
--- NOTE | 2020-03-22 14:42 | P.PN ---
Subjective Progress Note Date: 03/22/20 Principal diagnosis: Dyspnea, abnormal chest x-ray/CT This is a pleasant frail, cachectic appearing 80-year-old gentleman who follows with Bridget Bradford at the [facility]. He has a history of coronary artery disease, hypertension, chronic obstructive pulmonary disease. He has a 60 year pack per day smoking history. He is maintained on Symbicort, Spiriva, pro-air in the outpatient setting. He has been having increasing shortness of breath cough and congestion. He admits to a 30 pound weight loss over the past year. He is currently 45 kg. Denies any hemoptysis. CT angiogram ruled out pulmonary embolism. There is advanced emphysematous changes with pulmonary fibrotic changes greatest in the upper lobes. Some focal consolidation and atelectasis anterior inferior right upper lobe. More suspicious anterior right midlung mass or masslike consolidation noted. Neoplasm not excluded. He is seen today in consultation on the regular medical floor. He is currently sitting up in a chair at the bedside. Awake and alert in no acute distress. Currently maintaining O2 saturations in the mid 90s on 3 L/m per nasal cannula. White count 18.6. Hemoglobin 10.5. Lymphocytes 0.3. D-dimer 3.87. Sodium 142. Potassium 3.8. Creatinine 1.2. Ferritin level MDCCCVIII. LDH 567. C-reactive protein 315 down to 23 today. Pro-calcitonin 3.82. Influenza screen negative. Coronavirus screen negative. He has been initiated on DuoNeb inhalations, Symbicort, IV Solu-Medrol. Antibiotics in the form of Zosyn. On 03/22/2020 patient seen in follow-up on Gen. medical surgical floor. We place a consultation to interventional radiology for CT-guided fine-needle aspir ate biopsy of the right hilar mass, however the interventional radiologist felt that he would be safer to go down with a bronchoscope for a biopsy. Procedure was canceled, and as her trying to schedule the patient for a bronchoscopy today patient was already given his meal tray, and he had eaten. His vitals have been stable, room air pulse ox is 96%, hemodynamically stable, no fever or chills, r emains on IV steroids, and antibiotics in the form of Zosyn. He is on inhaled bronchodilators. Sputum culture has shown moderate PMNs, rare budding yeast, blood culture has shown no growth. No hemoptysis, no chest pain. His influenza and coronavirus screens were negative. Objective - Vital Signs Vital signs: Vital Signs Temp 97.4 F L 03/22/20 07:00 Pulse 88 03/22/20 12:12 Resp 16 03/22/20 07:00 BP 110/65 03/22/20 07:00 Pulse Ox 96 03/22/20 07:00 Intake & Output 03/21/20 03/22/20 03/22/20 18:59 06:59 18:59 Intake Total 300 Output Total 1000 900 Balance -700 -900 Weight 45.359 kg Intake: Oral 300 Output: Urine 1000 900 - Exam GENERAL EXAM: Alert, very pleasant, 80-year-old white male, quite emaciated, on 2 L of oxygen and the pulse ox of 96% comfortable in no apparent distress. HEAD: Normocephalic/atraumatic. EYES: Normal reaction of pupils, equal size. Conjunctiva pink, sclera white. NOSE: Clear with pink turbinates. THROAT: No erythema or exudates. NECK: No masses, no JVD, no thyroid enlargement, no adenopathy. CHEST: No chest wall deformity. Symmetrical expansion. LUNGS: Equal air entry with no crackles, wheeze, rhonchi or dullness. CVS: Regular rate and rhythm, normal S1 and S2, no gallops, no murmurs, no rubs ABDOMEN: Soft, nontender. No hepatosplenomegaly, normal bowel sounds, no guarding or rigidity. EXTREMITIES: No clubbing, no edema, no cyanosis, 2+ pulses and upper and lower extremities. MUSCULOSKELETAL: Muscle strength and tone normal. SPINE: No scoliosis or deformity SKIN: No rashes CENTRAL NERVOUS SYSTEM: Alert and oriented -3. No focal deficits, tone is normal in all 4 extremities. PSYCHIATRIC: Alert and oriented -3. Appropriate affect. Intact judgment and insight. - Labs CBC & Chem 7: 03/22/20 06:43 03/22/20 06:43 Labs: Abnormal Lab Results - Last 24 Hours (Table) 03/21/20 03/21/20 03/22/20 Range/Units 16:26 21:08 06:43 WBC 20.4 H (3.8-10.6) k/uL RBC 3.07 L (4.30-5.90) m/uL Hgb 9.6 L (13.0-17.5) gm/dL Hct 30.4 L (39.0-53.0) % Neutrophils # 19.6 H (1.3-7.7) k/uL Lymphocytes # 0.3 L (1.0-4.8) k/uL D-Dimer (<0.60) mg/L FEU Chloride (96-109) mmol/L BUN (9.0-27.0) mg/dL BUN/Creatinine Ratio (12.00-20.00) Ratio Glucose (70-110) mg/dL POC Glucose (mg/dL) 305 H 161 H (75-99) mg/dL Calcium (8.7-10.3) mg/dL C-Reactive Protein (0.0-0.8) mg/dL Cortisol (3.10-22.40) ug/dL 03/22/20 03/22/20 03/22/20 Range/Units 06:43 06:43 06:52 WBC (3.8-10.6) k/uL RBC (4.30-5.90) m/uL Hgb (13.0-17.5) gm/dL Hct (39.0-53.0) % Neutrophils # (1.3-7.7) k/uL Lymphocytes # (1.0-4.8) k/uL D-Dimer 4.85 H (<0.60) mg/L FEU Chloride 115 H (96-109) mmol/L BUN 48.0 H (9.0-27.0) mg/dL BUN/Creatinine Ratio 48.00 H (12.00-20.00) Ratio Glucose 191 H (70-110) mg/dL POC Glucose (mg/dL) 184 H (75-99) mg/dL Calcium 8.4 L (8.7-10.3) mg/dL C-Reactive Protein 12.6 H (0.0-0.8) mg/dL Cortisol 36.0 H (3.10-22.40) ug/dL 03/22/20 Range/Units 11:28 WBC (3.8-10.6) k/uL RBC (4.30-5.90) m/uL Hgb (13.0-17.5) gm/dL Hct (39.0-53.0) % Neutrophils # (1.3-7.7) k/uL Lymphocytes # (1.0-4.8) k/uL D-Dimer (<0.60) mg/L FEU Chloride (96-109) mmol/L BUN (9.0-27.0) mg/dL BUN/Creatinine Ratio (12.00-20.00) Ratio Glucose (70-110) mg/dL POC Glucose (mg/dL) 151 H (75-99) mg/dL Calcium (8.7-10.3) mg/dL C-Reactive Protein (0.0-0.8) mg/dL Cortisol (3.10-22.40) ug/dL Microbiology - Last 24 Hours (Table) 03/20/20 14:35 Blood Culture - Preliminary Blood No Growth after 24 hours 03/21/20 07:14 Gram Stain - Preliminary Sputum Sputum Culture - Preliminary Assessment and Plan Plan: Assessment 1 Acute hypoxic respiratory failure secondary to masslike consolidation in the anterior inferior aspect of the right upper lobe with some suspected postobstructive pneumonia, anterior right hilar mass measuring 2.7 x 2.2 cm abutting the mediastinum. 2 Acute exacerbation of chronic obstructive pulmonary disease with advanced underlying emphysematous changes and pulmonary fibrotic changes of the upper lobes 3 Chronic and ongoing tobacco dependence of greater than 60 years 4 Unexplained weight loss of approximately 30 pounds 5 Protein calorie malnutrition 6 History of coronary artery disease 7 Hypertension 8 History of bladder cancer with urostomy 9 History of ruptured duodenal ulcer many years ago. 10 Elevated d-dimer and inflammatory markers with coronavirus not detected, PE ruled out Plan: Patient had already eaten breakfast, could not be placed on a bronchoscopy scheduled. Continue with current medical treatment, continue same antibiotics, vital signs are stable, no worsening dyspnea, will await final results of cultures, interventional radiology could not do the CT-guided FNA biopsy of the right hilar mass. Recommended bronchoscopy with endobronchial biopsies. Continue medical treatment for now. May consider bronchoscopy early next week, however patient's is physically quite weak, emaciated, he would be a poor candidate for any chemo or radiation treatment. Continue supportive treatment for now I performed a history & physical examination of the patient and discussed their management with my nurse practitioner, Monika Mcadams. I reviewed the nurse practitioner's note and agree with the documented findings and plan of care. Lung sounds are positive for diminished breath sounds. The findings and the impression was discussed with the patient. I attest to the documentation by the nurse practitioner. Time with Patient: Less than 30
[2020-03-22 16:37] LABS: Glucose,Whole Blood 194 mg/dL (75-99)
[2020-03-22] MEDS: SODIUM CHLORIDE 0.9% 1,000 ML IV SCH (16:56)
--- NOTE | 2020-03-22 17:10 | PN ---
PROGRESS NOTE DATE OF SERVICE: 03/22/2020 This 80-year-old gentleman who presented with multiple medical problems, including COPD, acute exacerbation, and right upper lobe lesion, is being closely monitored at this time. The patient was thought to be a high-risk candidate for either radiology FNA or bronchoscopy. Outpatient bronchoscopy is an option per Dr. Harmon, but the patient is extremely weak with severe malnutrition with a BMI of 13.2. Multiple consultants are following the patient closely. A CT scan of the abdomen and pelvis was noted which did not show any acute abnormality at this time. Past medical history reviewed. REVIEW OF SYSTEMS: CARDIOVASCULAR SYSTEM: No angina, palpitations. RESPIRATORY SYSTEM: As mentioned earlier. GI: As mentioned earlier. : No dysuria or retention. NERVOUS SYSTEM: No numbness, weakness. CURRENT MEDICATIONS: Reviewed. They include [place], DuoNeb, Xanax, aspirin, Symbicort, Claritin, multivitamins, Zosyn. PHYSICAL EXAMINATION: Patient is alert, oriented x3. The pulse is 88, blood pressure 110/64, respirations 16, temperature 97.4, pulse ox 96% on room air. HEENT: Conjunctivae normal. NECK: No jugular venous distention. CARDIOVASCULAR SYSTEM: S1, S2 muffled. RESPIRATORY SYSTEM: Breath sounds diminished at the bases. Bilateral scattered rhonchi and crackles. ABDOMEN: Soft, non-tender. NERVOUS SYSTEM: No focal deficit. LAB STUDIES: WBC 20.2, hemoglobin 9.6. D-dimer is 4.85. ASSESSMENT: 1. Chronic obstructive pulmonary disease, acute exacerbation, with acute bilateral pneumonia, right more than left, possibly Gram-negative, with possible sepsis and acute hypoxic respiratory failure. 2. COVID-19 ruled out. 3. Possible right hilar mass. 4. Increased creatinine with acute renal failure with acute tubular necrosis. 5. Elevated lactic acid, possibly secondary to sepsis. 6. Elevated D-dimer without any evidence of pulmonary embolism. 7. Relative hypotension. 8. Increased white count, possibly secondary to sepsis. 9. Significant weight loss, possibly secondary to malignancy. 10.Severe protein-calorie malnutrition with body mass index of 13.2. 11.History of coronary artery disease. 12.History of chronic obstructive pulmonary disease. 13.Hypertension. 14.History of bladder cancer with urostomy. 15.History of tachycardia. 16.History of ruptured duodenal ulcer at age of 31. 17.History of nicotine dependence. 18.FULL CODE WITH INSTRUCTIONS. RECOMMENDATIONS AND DISCUSSION: I recommend to continue current medications, continue with the monitoring, symptomatic treatment. Cortisol was found to be elevated. I would recommend continuing the broad- spectrum IV antibiotics. Continue to monitor. Dietary evaluation. Protein supplements. Prognosis guarded because of multiple complex medical issues. Further recommendations to follow. MMODL / IJN: [id number] /
[2020-03-22 20:32] LABS: Glucose,Whole Blood 226 mg/dL (75-99)
--- NOTE | 2020-03-22 22:55 | PN ---
PROGRESS NOTE DATE OF SERVICE: 03/22/2020 REASON FOR FOLLOWUP: Pneumonia. INTERVAL HISTORY: Patient is currently afebrile. The patient is breathing comfortably. The patient did have a cough but is not productive. No nausea, no vomiting. No abdominal pain or diarrhea. PHYSICAL EXAMINATION: Blood pressure 126/63 with a pulse of 83, temperature 98. He is 95% on 2 L nasal cannula. General description is an elderly male lying in bed in no distress. Respiratory system: Unlabored breathing, decreased breath sounds in the base. No wheeze. Heart S1, S2. Regular rate and rhythm. Abdomen soft, no tenderness. LABS: Hemoglobin 11.5, white count 20, BUN of 48, creatinine 1.0. Sputum pending. Blood cultures so far negative. DIAGNOSTIC IMPRESSION AND PLAN: Patient admitted to the hospital with shortness of breath, weakness, sputum with component of pneumonia. Patient is covered with Zosyn. Sputum culture will be followed and will monitor clinical course closely. MMODL / IJN: [id number] /
[2020-03-23] MEDS: methylPREDNISolone SOD SUCCI 125 MG/2 ML VIAL IV SCH ×4 (00:16→17:41)
[2020-03-23] MEDS: IPRATROPIUM-ALBUTEROL 3 ML NEB INHALATION SCH ×6 (04:05→23:14)
[2020-03-23] MEDS: PIPERACILLIN-TAZOBACTAM 3.375 GM in SODIUM CHLORIDE 0.9% 100 ML IVPB SCH ×3 (04:47→20:38)
[2020-03-23 07:02] LABS: Glucose,Whole Blood 145 mg/dL (75-99)
[2020-03-23 07:34] LABS: Basophils % (A) 0 %; Eosinophils % (A) 0 %; HCT 31.8 % (39.0-53.0); HGB 10.3 gm/dL (13.0-17.5); Lymphocytes # (A) 0.3 k/uL (1.0-4.8); Lymphocytes % (A) 1 %; MCH 31.6 pg (25.0-35.0); MCHC 32.5 g/dL (31.0-37.0); MCV 97.3 fL (80.0-100.0); Monocytes # (A) 0.6 k/uL (0-1.0); Monocytes % (A) 3 %; Neutrophils # (A) 20.3 k/uL (1.3-7.7); Neutrophils % (A) 95 %; Platelet Count 347 k/uL (150-450); RBC 3.27 m/uL (4.30-5.90); RDW 13.2 % (11.5-15.5); WBC 21.3 k/uL (3.8-10.6)
[2020-03-23] MEDS: METOPROLOL TARTRATE 50 MG TAB PO SCH ×2 (08:52→20:38)
[2020-03-23] MEDS: LORATADINE 10 MG TAB PO SCH (08:53)
[2020-03-23] MEDS: INSULIN ASPART (NovoLOG) 100 UNIT/ML VIAL SQ SCH ×4 (08:53→20:38)
[2020-03-23] MEDS: ASPIRIN 81 MG PO SCH (08:53)
[2020-03-23] MEDS: SODIUM CHLORIDE 0.65% NASAL SPRAY 44 ML BTL NASAL SCH ×2 (08:53→20:38)
[2020-03-23] MEDS: SYMBICORT 160-4.5 MCG INHALER INHALATION SCH ×2 (10:19→19:15)
[2020-03-23 11:22] LABS: Glucose,Whole Blood 213 mg/dL (75-99)
[2020-03-23] MEDS: MULTIVITAMINS, THERA 1 EACH TAB PO SCH (12:25)
[2020-03-23] MEDS: FOLIC ACID 1 MG TAB PO SCH (12:25)
[2020-03-23] MEDS: THIAMINE 100 MG TAB PO SCH (12:25)
[2020-03-23 13:59] LABS: African American GFR (CKD) 82.6 (60.0-200.0); C Reactive Protein 8.6 mg/dL (0.0-0.8); Calcium 8.5 mg/dL (8.7-10.3); Non-African American GFR(CKD) 71.3 (60.0-200.0); Potassium 4.1 mmol/L (3.5-5.5)
--- NOTE | 2020-03-23 14:22 | P.PN ---
Subjective Progress Note Date: 03/23/20 Principal diagnosis: Acute exacerbation of chronic obstructive pulmonary disease, right midlung mass This is a pleasant frail, cachectic appearing 80-year-old gentleman who follows with Bridget Bradford at the [facility]. He has a history of coronary artery disease, hypertension, chronic obstructive pulmonary disease. He has a 60 year pack per day smoking history. He is maintained on Symbicort, Spiriva, pro-air in the outpatient setting. He has been having increasing shortness of breath cough and congestion. He admits to a 30 pound weight loss over the past year. He is currently 45 kg. Denies any hemoptysis. CT angiogram ruled out pulmonary embolism. There is advanced emphysematous changes with pulmonary fibrotic changes greatest in the upper lobes. Some focal consolidation and atelectasis anterior inferior right upper lobe. More suspicious anterior right midlung mass or masslike consolidation noted. Neoplasm not excluded. He is seen today in consultation on the regular medical floor. He is currently sitting up in a chair at the bedside. Awake and alert in no acute distress. Currently maintaining O2 saturations in the mid 90s on 3 L/m per nasal cannula. White count 18.6. Hemoglobin 10.5. Lymphocytes 0.3. D-dimer 3.87. Sodium 142. Potassium 3.8. Creatinine 1.2. Ferritin level MDCCCVIII. LDH 567. C-reactive protein 315 down to 23 today. Pro-calcitonin 3.82. Influenza screen negative. Coronavirus screen negative. He has been initiated on DuoNeb inhalations, Symbicort, IV Solu-Medrol. Antibiotics in the form of Zosyn. On 03/22/2020 patient seen in follow-up on Gen. medical surgical floor. We place a consultation to interventional radiology for CT-guided fine-needle aspirate biopsy of the right hilar mass, however the interventional radiologist felt that he would be safer to go down with a bronchoscope for a biopsy. Pro cedure was canceled, and as her trying to schedule the patient for a bronchoscopy today patient was already given his meal tray, and he had eaten. His vitals have been stable, room air pulse ox is 96%, hemodynamically stable, no fever or chills, remains on IV steroids, and antibiotics in the form of Zosyn. He is on inhaled bronchodilators. Sputum culture has shown moderate PMNs, rare budding yeast, blood culture has shown no growth. No hemoptysis, no chest pain. His influenza and coronavirus screens were negative. The patient seen today 03/23/2020 in follow-up on the regular medical floor. He is awake and alert in no acute distress. Breathing a bit easier today compared to yesterday. Maintaining good O2 saturations in the 90s on room air. He's been afebrile. Hemodynamically stable. White count 21.3. Hemoglobin 10.3. D- dimer 4.30. Sodium 143. Potassium 4.1. Creatinine 1.0. He is continued on DuoNeb inhalations, Symbicort, IV Solu-Medrol, Zosyn. Objective - Vital Signs Vital signs: Vital Signs Temp 97.8 F 03/23/20 07:00 Pulse 90 03/23/20 10:35 Resp 20 03/23/20 07:00 BP 108/64 03/23/20 07:00 Pulse Ox 96 03/23/20 07:00 Intake & Output 03/22/20 03/23/20 03/23/20 18:59 06:59 18:59 Output Total 420 750 Balance -420 -750 Output: Urine 420 750 - Exam GENERAL EXAM: Alert, very pleasant, 80-year-old male patient, quite emaciated, on room air and the pulse ox of 96% comfortable in no apparent distress. HEAD: Normocephalic/atraumatic. EYES: Normal reaction of pupils, equal size. Conjunctiva pink, sclera white. NOSE: Clear with pink turbinates. THROAT: No erythema or exudates. NECK: No masses, no JVD, no thyroid enlargement, no adenopathy. CHEST: No chest wall deformity. Symmetrical expansion. LUNGS: Equal air entry with bilateral end expiratory wheeze, diminished. CVS: Regular rate and rhythm, normal S1 and S2, no gallops, no murmurs, no rubs ABDOMEN: Soft, nontender. No hepatosplenomegaly, normal bowel sounds, no guarding or rigidity. EXTREMITIES: No clubbing, no edema, no cyanosis, 2+ pulses and upper and lower extremities. MUSCULOSKELETAL: Muscle strength and tone normal. SPINE: No scoliosis or deformity SKIN: No rashes CENTRAL NERVOUS SYSTEM: No focal deficits, tone is normal in all 4 extremities. PSYCHIATRIC: Alert and oriented -3. Appropriate affect. Intact judgment and insight. - Labs CBC & Chem 7: 03/23/20 06:44 03/23/20 06:44 Labs: Abnormal Lab Results - Last 24 Hours (Table) 03/22/20 03/22/20 03/23/20 Range/Units 16:37 20:30 06:44 WBC 21.3 H (3.8-10.6) k/uL RBC 3.27 L (4.30-5.90) m/uL Hgb 10.3 L (13.0-17.5) gm/dL Hct 31.8 L (39.0-53.0) % Neutrophils # 20.3 H (1.3-7.7) k/uL Lymphocytes # 0.3 L (1.0-4.8) k/uL D-Dimer (<0.60) mg/L FEU Chloride (96-109) mmol/L Carbon Dioxide (21.6-31.8) mmol/L BUN (9.0-27.0) mg/dL BUN/Creatinine Ratio (12.00-20.00) Ratio Glucose (70-110) mg/dL POC Glucose (mg/dL) 194 H 226 H (75-99) mg/dL Calcium (8.7-10.3) mg/dL C-Reactive Protein (0.0-0.8) mg/dL 03/23/20 03/23/20 03/23/20 Range/Units 06:44 06:44 06:58 WBC (3.8-10.6) k/uL RBC (4.30-5.90) m/uL Hgb (13.0-17.5) gm/dL Hct (39.0-53.0) % Neutrophils # (1.3-7.7) k/uL Lymphocytes # (1.0-4.8) k/uL D-Dimer 4.30 H (<0.60) mg/L FEU Chloride 115 H (96-109) mmol/L Carbon Dioxide 21.0 L (21.6-31.8) mmol/L BUN 40.0 H (9.0-27.0) mg/dL BUN/Creatinine Ratio 40.00 H (12.00-20.00) Ratio Glucose 132 H (70-110) mg/dL POC Glucose (mg/dL) 145 H (75-99) mg/dL Calcium 8.5 L (8.7-10.3) mg/dL C-Reactive Protein 8.6 H (0.0-0.8) mg/dL 03/23/20 Range/Units 11:17 WBC (3.8-10.6) k/uL RBC (4.30-5.90) m/uL Hgb (13.0-17.5) gm/dL Hct (39.0-53.0) % Neutrophils # (1.3-7.7) k/uL Lymphocytes # (1.0-4.8) k/uL D-Dimer (<0.60) mg/L FEU Chloride (96-109) mmol/L Carbon Dioxide (21.6-31.8) mmol/L BUN (9.0-27.0) mg/dL BUN/Creatinine Ratio (12.00-20.00) Ratio Glucose (70-110) mg/dL POC Glucose (mg/dL) 213 H (75-99) mg/dL Calcium (8.7-10.3) mg/dL C-Reactive Protein (0.0-0.8) mg/dL Microbiology - Last 24 Hours (Table) 03/21/20 07:14 Gram Stain - Final Sputum Sputum Culture - Final Cele glabrata 03/20/20 14:35 Blood Culture - Preliminary Blood No Growth after 48 hours Assessment and Plan Assessment: 1 Acute hypoxic respiratory failure secondary to masslike consolidation in the anterior inferior aspect of the right upper lobe with some suspected postobstructive pneumonia, anterior right hilar mass measuring 2.7 x 2.2 cm abutting the mediastinum. 2 Acute exacerbation of chronic obstructive pulmonary disease with advanced underlying emphysematous changes and pulmonary fibrotic changes of the upper lobes 3 Chronic and ongoing tobacco dependence of greater than 60 years 4 Unexplained weight loss of approximately 30 pounds 5 Protein calorie malnutrition 6 History of coronary artery disease 7 Hypertension 8 History of bladder cancer with urostomy 9 History of ruptured duodenal ulcer many years ago. 10 Elevated d-dimer and inflammatory markers with coronavirus not detected, PE ruled out Plan: The patient was seen and evaluated by Dr. Harmon He is improving from the pulmonary standpoint, on room air Continue Symbicort, DuoNeb inhalations, Solu-Medrol, Zosyn Educated regarding the importance of complete smoking cessation Once cleared, he'll be discharged home and have outpatient workup regarding the right hilar mass. We will continue to follow and make further recommendations based on his clinical status I, the cosigning physician, performed a history & physical examination of the patient. Lungs sounds with end expiratory wheeze, diminished. Maintaining good O2 saturations in the 90s on room air. I discussed the assessment and plan of care with my nurse practitioner, Kavita Youssef. I attest to the above note as dictated by her.
[2020-03-23 17:06] LABS: Glucose,Whole Blood 127 mg/dL (75-99)
[2020-03-23] MEDS: SODIUM CHLORIDE 0.9% 1,000 ML IV SCH (17:41)
[2020-03-23 19:54] LABS: Glucose,Whole Blood 170 mg/dL (75-99)
--- NOTE | 2020-03-23 23:22 | PN ---
PROGRESS NOTE DATE OF SERVICE: 03/23/2020 This 80-year-old gentleman who presented with multiple medical problems including COPD acute exacerbation as well as possibly pneumonia and right hilar lesion, has significant protein calorie malnutrition. The patient is extremely weak and emaciated and interventional radiology feel he is not a candidate for any fine-needle aspiration currently. Pulmonary also thinks the patient is too fragile and weak for bronchoscopy. Recommended increasing nutrition status and possibly consider outpatient one the pneumonia and the breathing is getting better. The patient will be closely monitored. The patient is mildly confused as well. The patient apparently had a poor social support. PAST MEDICAL HISTORY: Reviewed. REVIEW OF SYSTEMS: Could not be taken. CURRENT MEDICATIONS: Reviewed include [place] 5 mg, Xanax, aspirin, Symbicort, NovoLog, Lopressor, Solu- Medrol. Doses are reviewed. PHYSICAL EXAM: Patient is alert, oriented x2. Pulse 67, blood pressure 100/70, respiration 20, temperature 97.2, pulse ox 94% on 2 L. HEENT: Conjunctivae normal. Oral mucosa moist. NECK: No jugular venous distention. No lymph node enlargement. CARDIOVASCULAR: S1, S2, muffled. No S3, no S4, RESPIRATORY: Diminished breath sounds at the bases. Bilateral scattered rhonchi and crackles. ABDOMEN: Soft, nontender. LEGS: No edema, no swelling. NERVOUS SYSTEM: Diffusely weak and emaciated. LAB STUDIES: WBC 21.2, hemoglobin 10.3, D-dimer is 4.3. Accu-Cheks noted. ASSESSMENT: 1. Chronic obstructive pulmonary disease acute exacerbation with acute bilateral pneumonia, right more than left, possibly gram-negative with possible sepsis and acute hypoxic respiratory failure, present on admission. 2. Possible right hilar mass. 3. COVID-19 ruled out. 4. Change in mental status, metabolic encephalopathy. 5. Extreme debility with severe protein calorie malnutrition. 6. Increased creatinine with acute tubular necrosis with acute renal failure, present on admission. 7. Elevated lactic acid secondary to sepsis present on admission. 8. Elevated D-dimer without any evidence of pulmonary embolism. 9. Relative hypotension. 10.Increased WBC possibly secondary sepsis. 11.Significant weight loss, possibly secondary to malignancy. 12.BMI of 13.8 indicating severe protein calorie malnutrition. 13.History of CAD. 14.History of COPD. 15.Hypertension. 16.History of bladder cancer with urostomy. 17.History of tachycardia. 18.History of ruptured duodenal ulcer at age of 31. 19.History of nicotine dependence. 20.FULL CODE with instructions. RECOMMENDATIONS AND DISCUSSION: Recommend to continue current management and continue symptomatic treatment. Continue the antibiotics. Continue steroids. Continue with nutrition supplementation. PT, OT evaluation. The patient might require ECF rehab because of the multiple complex medical issues and prognosis guarded. Further recommendations to follow. Currently patient is FULL CODE with instructions. spring salvage worker and Case Management to work with the patient and family and further recommendations to follow. Again, prognosis guarded. I would also recommend a CT scan of the brain to complete the workup also. MMODL / IJN: [id number] /
[2020-03-24] MEDS: methylPREDNISolone SOD SUCCI 125 MG/2 ML VIAL IV SCH ×5 (00:11→23:45)
[2020-03-24] MEDS: PIPERACILLIN-TAZOBACTAM 3.375 GM in SODIUM CHLORIDE 0.9% 100 ML IVPB SCH ×3 (04:18→21:01)
[2020-03-24] MEDS: SODIUM CHLORIDE 0.9% 1,000 ML IV SCH (04:19)
--- NOTE | 2020-03-24 05:19 | PN ---
PROGRESS NOTE DATE OF SERVICE: 03/23/2020 REASON FOR FOLLOWUP: Pneumonia. INTERVAL HISTORY: The patient is currently afebrile, has been breathing comfortably. The patient denies having any chest pain. No shortness of breath. Minimal cough. No abdominal pain or no diarrhea. EXAMINATION: Blood pressure 124/73, pulse of 88, temperature is 97.9, he is 93% on room air. General description is an elderly male lying in bed in no distress. Respiratory system: Unlabored breathing, decreased breath sounds at the bases, no wheeze. Heart S1, S2. Regular rate and rhythm. Abdomen is soft, no tenderness. LAB: Hemoglobin 10.3, white count 21.3, BUN of 40, creatinine 1.0. Sputum is negative. DIAGNOSTIC IMPRESSION AND PLAN: Patient with bilateral lobe pneumonia, question of aspiration. Patient is covered with Zosyn. Sputum has been negative . Finishing therapy with oral antibiotics. Continue supportive care. MMODL / IJN: [id number] /
[2020-03-24] MEDS: IPRATROPIUM-ALBUTEROL 3 ML NEB INHALATION SCH ×6 (06:09→23:01)
[2020-03-24 06:58] LABS: Glucose,Whole Blood 128 mg/dL (75-99)
[2020-03-24] MEDS: INSULIN ASPART (NovoLOG) 100 UNIT/ML VIAL SQ SCH ×4 (07:02→20:35)
[2020-03-24] MEDS: METOPROLOL TARTRATE 50 MG TAB PO SCH ×2 (07:12→21:01)
[2020-03-24] MEDS: ASPIRIN 81 MG PO SCH (07:12)
[2020-03-24] MEDS: LORATADINE 10 MG TAB PO SCH (07:12)
[2020-03-24] MEDS: SODIUM CHLORIDE 0.65% NASAL SPRAY 44 ML BTL NASAL SCH ×2 (07:27→21:02)
[2020-03-24] MEDS: SYMBICORT 160-4.5 MCG INHALER INHALATION SCH ×2 (08:25→20:09)
--- NOTE | 2020-03-24 09:01 | CT ---
EXAMINATION TYPE: CT brain wo con DATE OF EXAM: 03/24/2020 HISTORY: confusion CT DLP: 1086.4 mGycm. Automated Exposure Control for Dose Reduction was Utilized. TECHNIQUE: CT scan of the head is performed without contrast. COMPARISON: None. FINDINGS: There is no acute intracranial hemorrhage or midline shift identified. There is diffuse v entricular and sulcal prominence degree of ventricular prominence slightly out of proportion to degre e of sulcal effacement. There is low-attenuation in the periventricular white matter consistent with chronic small vessel ischemic change in patient of this age. 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 The globes are intact and the visualized sinuses are clear. IMPRESSION: No acute intracranial hemorrhage or midline shift. There is moderate diffuse cerebral a trophy and chronic small vessel ischemic change noted. 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 Underlying normal pressure hydrocephalus not excluded. Correlate clinically. Correlation with old outside CT or MRI would be beneficial.
[2020-03-24 11:17] LABS: Glucose,Whole Blood 111 mg/dL (75-99)
[2020-03-24] MEDS: FOLIC ACID 1 MG TAB PO SCH (11:34)
[2020-03-24] MEDS: MULTIVITAMINS, THERA 1 EACH TAB PO SCH (11:34)
[2020-03-24] MEDS: THIAMINE 100 MG TAB PO SCH (11:34)
--- NOTE | 2020-03-24 13:59 | P.PN ---
Subjective Progress Note Date: 03/24/20 Principal diagnosis: Acute exacerbation of chronic obstructive pulmonary disease, right midlung mass This is a pleasant frail, cachectic appearing 80-year-old gentleman who follows with Bridget Bradford at the [facility]. He has a history of coronary artery disease, hypertension, chronic obstructive pulmonary disease. He has a 60 year pack per day smoking history. He is maintained on Symbicort, Spiriva, pro-air in the outpatient setting. He has been having increasing shortness of breath cough and congestion. He admits to a 30 pound weight loss over the past year. He is currently 45 kg. Denies any hemoptysis. CT angiogram ruled out pulmonary embolism. There is advanced emphysematous changes with pulmonary fibrotic changes greatest in the upper lobes. Some focal consolidation and atelectasis anterior inferior right upper lobe. More suspicious anterior right midlung mass or masslike consolidation noted. Neoplasm not excluded. He is seen today in consultation on the regular medical floor. He is currently sitting up in a chair at the bedside. Awake and alert in no acute distress. Currently maintaining O2 saturations in the mid 90s on 3 L/m per nasal cannula. White count 18.6. Hemoglobin 10.5. Lymphocytes 0.3. D-dimer 3.87. Sodium 142. Potassium 3.8. Creatinine 1.2. Ferritin level MDCCCVIII. LDH 567. C-reactive protein 315 down to 23 today. Pro-calcitonin 3.82. Influenza screen negative. Coronavirus screen negative. He has been initiated on DuoNeb inhalations, Symbicort, IV Solu-Medrol. Antibiotics in the form of Zosyn. On 03/22/2020 patient seen in follow-up on Gen. medical surgical floor. We place a consultation to interventional radiology for CT-guided fine-needle aspirate biopsy of the right hilar mass, however the interventional radiologist felt that he would be safer to go down with a bronchoscope for a biopsy. Pro cedure was canceled, and as her trying to schedule the patient for a bronchoscopy today patient was already given his meal tray, and he had eaten. His vitals have been stable, room air pulse ox is 96%, hemodynamically stable, no fever or chills, remains on IV steroids, and antibiotics in the form of Zosyn. He is on inhaled bronchodilators. Sputum culture has shown moderate PMNs, rare budding yeast, blood culture has shown no growth. No hemoptysis, no chest pain. His influenza and coronavirus screens were negative. The patient seen today 03/23/2020 in follow-up on the regular medical floor. He is awake and alert in no acute distress. Breathing a bit easier today compared to yesterday. Maintaining good O2 saturations in the 90s on room air. He's been afebrile. Hemodynamically stable. White count 21.3. Hemoglobin 10.3. D- dimer 4.30. Sodium 143. Potassium 4.1. Creatinine 1.0. He is continued on DuoNeb inhalations, Symbicort, IV Solu-Medrol, Zosyn. The patient is seen today 03/24/2020 in follow-up on the regular medical floor. He is maintaining good O2 saturations in the 90s on 2 L/m per nasal cannula. 91% O2 saturation on room air. He denies any worsening shortness of breath, cough or congestion. He was having some issues with confusion according to staff. Computed tomography scan of the brain revealed no acute intracranial hemorrhage or midline shift. There is moderate diffuse cerebral atrophy and chronic small vessel changes. 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 Underlying normal pressure hydrocephalus not excluded. Blood glucose 111. He remains on Zosyn, Symbicort, DuoNeb's, IV Solu-Medrol. Objective - Vital Signs Vital signs: Vital Signs Temp 98.0 F 03/24/20 07:51 Pulse 80 03/24/20 12:11 Resp 20 03/24/20 07:51 BP 129/70 03/24/20 07:51 Pulse Ox 91 L 03/24/20 07:51 Intake & Output 03/23/20 03/24/20 03/24/20 18:59 06:59 18:59 Intake Total 222 Output Total 600 525 Balance -600 -303 Intake: Oral 222 Output: Urine 600 525 - Exam GENERAL EXAM: Alert, very pleasant, 80-year-old male patient, quite emaciated, on room air and the pulse ox of 91% comfortable in no apparent distress. HEAD: Normocephalic/atraumatic. EYES: Normal reaction of pupils, equal size. Conjunctiva pink, sclera white. NOSE: Clear with pink turbinates. THROAT: No erythema or exudates. NECK: No masses, no JVD, no thyroid enlargement, no adenopathy. CHEST: No chest wall deformity. Symmetrical expansion. LUNGS: Equal air entry with bilateral end expiratory wheeze, diminished. CVS: Regular rate and rhythm, normal S1 and S2, no gallops, no murmurs, no rubs ABDOMEN: Soft, nontender. No hepatosplenomegaly, normal bowel sounds, no guarding or rigidity. EXTREMITIES: No clubbing, no edema, no cyanosis, 2+ pulses and upper and lower extremities. MUSCULOSKELETAL: Muscle strength and tone normal. SPINE: No scoliosis or deformity SKIN: No rashes CENTRAL NERVOUS SYSTEM: No focal deficits, tone is normal in all 4 extremities. PSYCHIATRIC: Alert and oriented -3. Appropriate affect. Intact judgment and insight. - Labs CBC & Chem 7: 03/23/20 06:44 03/23/20 06:44 Labs: Abnormal Lab Results - Last 24 Hours (Table) 03/23/20 03/23/20 03/23/20 Range/Units 06:44 17:02 19:51 Chloride 115 H (96-109) mmol/L Carbon Dioxide 21.0 L (21.6-31.8) mmol/L BUN 40.0 H (9.0-27.0) mg/dL BUN/Creatinine Ratio 40.00 H (12.00-20.00) Ratio Glucose 132 H (70-110) mg/dL POC Glucose (mg/dL) 127 H 170 H (75-99) mg/dL Calcium 8.5 L (8.7-10.3) mg/dL C-Reactive Protein 8.6 H (0.0-0.8) mg/dL 03/24/20 03/24/20 Range/Units 06:50 11:14 Chloride (96-109) mmol/L Carbon Dioxide (21.6-31.8) mmol/L BUN (9.0-27.0) mg/dL BUN/Creatinine Ratio (12.00-20.00) Ratio Glucose (70-110) mg/dL POC Glucose (mg/dL) 128 H 111 H (75-99) mg/dL Calcium (8.7-10.3) mg/dL C-Reactive Protein (0.0-0.8) mg/dL Microbiology - Last 24 Hours (Table) 03/20/20 14:35 Blood Culture - Preliminary Blood No Growth after 72 hours 03/21/20 07:14 Gram Stain - Final Sputum Sputum Culture - Final Cele glabrata Assessment and Plan Assessment: 1 Acute hypoxic respiratory failure secondary to masslike consolidation in the anterior inferior aspect of the right upper lobe with some suspected postobstructive pneumonia, anterior right hilar mass measuring 2.7 x 2.2 cm abutting the mediastinum. 2 Acute exacerbation of chronic obstructive pulmonary disease with advanced underlying emphysematous changes and pulmonary fibrotic changes of the upper lobes 3 Chronic and ongoing tobacco dependence of greater than 60 years 4 Unexplained weight loss of approximately 30 pounds 5 Protein calorie malnutrition 6 History of coronary artery disease 7 Hypertension 8 History of bladder cancer with urostomy 9 History of ruptured duodenal ulcer many years ago. 10 Elevated d-dimer and inflammatory markers with coronavirus not detected, PE ruled out Plan: The patient was seen and evaluated by Dr. Eden Browning Symbicort, DuoNeb inhalations, Solu-Medrol, Zosyn Educated regarding the importance of complete smoking cessation Once cleared, he'll be discharged home and have outpatient workup regarding the right hilar mass. We will continue to follow and make further recommendations based on his clinical status I, the cosigning physician, performed a history & physical examination of the patient. Lungs sounds with end expiratory wheeze, diminished. Maintaining good O2 saturations in the 90s on room air. I discussed the assessment and plan of care with my nurse practitioner, Kavita Youssef. I attest to the above note as dictated by her.
[2020-03-24 17:12] LABS: Glucose,Whole Blood 198 mg/dL (75-99)
--- NOTE | 2020-03-24 17:50 | XR ---
EXAMINATION TYPE: XR chest 1V portable DATE OF EXAM: 03/24/2020 COMPARISON: 03/21/2020 HISTORY: Pneumonia TECHNIQUE: Single view FINDINGS: There is bilateral small pleural effusions. There is basilar bilateral pulmonary mild infil trates. There is infiltrate at the right pulmonary hilum extending into the right upper lobe. There i s some pleural and pulmonary scarring at the lung apices. There are emphysematous changes in both taryn gs. IMPRESSION: Pleural fluid and pulmonary infiltrates at the lung bases appear increased compared to re cent exam. Bilateral pulmonary upper lobe infiltrates not significantly different than recent exam. E mphysema.
[2020-03-24 20:34] LABS: Glucose,Whole Blood 76 mg/dL (75-99)
[2020-03-24] MEDS ORDERED: FUROSEMIDE 10 MG/ML 4 ML VIAL IV STA (22:30)
[2020-03-24] MEDS ORDERED: FUROSEMIDE 10 MG/ML 4 ML VIAL ONE (22:31)
[2020-03-24 22:44] LABS: ABG Base Excess -4.1 mmol/L; ABG HCO3 24 mmol/L (21-25); ABG Oxygen Saturation 92.8 % (94-97); ABG PCO2 62 mmHg (35-45); ABG PO2 76 mmHg (83-108); ABG TCO2 26 mmol/L (19-24); Allen Test Performed? Yes
--- NOTE | 2020-03-24 22:56 | PN ---
PROGRESS NOTE DATE OF SERVICE: 03/24/2020 This 80-year-old gentleman who was admitted with COPD acute exacerbation, acute bilateral pneumonia, right more than left, is being closely monitored at this time. Patient also had possible right hilar mass. The patient was not deemed to be a candidate for either CT-guided biopsy or bronchoscopy biopsy because of the poor general condition of the patient and extremely severe malnutrition. Patient was started on IV antibiotics. COVID-19 has been ruled out. Multiple consultants are following the patient closely. The patient also had a CT scan of the brain without contrast, which showed no acute abnormality, moderate diffuse cerebral atrophy was noted, old left parietal infarct was noted. PAST MEDICAL HISTORY: Reviewed. REVIEW OF SYSTEMS: CARDIOVASCULAR SYSTEM: No angina. RESPIRATORY SYSTEM: As mentioned earlier. GI: As mentioned earlier. : No dysuria. NERVOUS SYSTEM: No numbness or weakness. CURRENT MEDICATIONS: Current medications are reviewed and include [place], DuoNeb, Xanax, aspirin, Symbicort, folic acid, NovoLog, Claritin, Solu-Medrol, Lopressor, multivitamins, Restoril, vitamin B1. PHYSICAL EXAMINATION: The patient is alert and oriented x3. Pulse is 81, blood pressure 164/52, respiration 20, temperature 97.6, pulse ox 94% on room air. HEENT: Conjunctivae normal. NECK: No jugular venous distention. CARDIOVASCULAR: S1, S2 muffled. RESPIRATORY: Breath sound diminished at the bases. Bilateral scattered rhonchi and crackles. ABDOMEN: Soft, nontender. LEGS: No edema. No swelling. NERVOUS SYSTEM: No focal deficits. LABS: Labs at this time show Accu-Cheks 170, 128 and 111. Other labs WBC 21.3, hemoglobin 10.3, and D-dimer is still elevated at 4.30. ASSESSMENT: 1. Chronic obstructive pulmonary disease acute exacerbation with acute bilateral pneumonia, right more than left possibly gram-negative with possible sepsis and acute hypoxic respiratory failure present on admission. 2. Possible right hilar mass lesion and lung cancer. 3. COVID-19 ruled out. 4. Change in mental status, acute metabolic encephalopathy multifactorial, possible dementia, underlying. 5. Extreme debility and severe protein calorie malnutrition. 6. Increased creatinine with acute tubular necrosis with acute renal failure present on admission. 7. Elevated lactic acid possibly secondary to sepsis, present on admission. 8. Elevated D-dimer without any evidence of pulmonary embolism. 9. Relative hypotension. 10.Increased WBC, possibly secondary to sepsis. 11.Significant weight loss, possibly secondary to malignancy. 12.BMI of 13.8, indicating severe protein calorie malnutrition. 13.History of coronary artery disease. 14.History of chronic obstructive pulmonary disease. 15.Hypertension. 16.History of bladder cancer with urostomy. 17.History of tachycardia. 18.History of ruptured duodenal ulcerated at age of 31. 19.History of nicotine dependence. 20.FULL CODE with instructions. RECOMMENDATIONS AND DISCUSSION: I recommend to continue current medications, continue symptomatic treatment. Otherwise, nutrition supplements. Repeat chest x-ray. Repeat labs. Cortisol was high. Rule out Dwayne's disease. Otherwise, D-dimer is elevated. I would also recommend ultrasound of the legs and Further recommendations to follow. Prognosis guarded. Discussed with the patient. YANICKL / MACN: [id number] / MTDD
--- NOTE | 2020-03-24 23:14 | XR ---
EXAMINATION TYPE: XR chest 1V portable DATE OF EXAM: 03/24/2020 COMPARISON: Today HISTORY: Pneumonia. Follow-up. TECHNIQUE: 2 views upright FINDINGS: There is extensive interstitial and linear infiltrate in the upper lobes bilaterally and mo re on the right side. There is pulmonary emphysema. There is blunting of the costophrenic angles. The re is no gross heart failure. Heart size is normal. There is masslike consolidation at the right pulm onary hilum. IMPRESSION: Bilateral upper lobe pneumonia with consolidation at the right pulmonary hilum that is th e same or slightly worse than exam 5 hours ago. Small pleural effusions unchanged. Emphysema.
--- NOTE | 2020-03-24 23:34 | P.EN ---
notified for A team due to change in mental status and hypoxemia patient admitted with weight loss and found to have right upper lung mass, suspected of malignancy , resulting in post obstructive pneumonia patient is having increase oxygen requirement , along with decrease responsiveness ABG showed hypercapnic respiratory failure with respiratory acidosis Cxr showed right upper lung mass on exam , patient oxygen sat 89% on 15 L non rebreather lung exam , decrease breath sounds over mid lower lungs bilaterally with rhoncorus breathing , poor effort. no wheezing patient responds to verbal stimulation and follows limited simple commands patient oxygensaturation improved with CPT. and encouragement differential diagnosis acute metabolic encephalopathy acute hypoxic hypercapnic respiratory failure with underlying lung mass and possible post obstructive pneumonia plan supportive care transfer to bipap with differential pressure of 6 repeat ABG in 2 hours patient is full code 30 minutes spent in critical care service
[2020-03-25 00:27] LABS: ABG Base Excess -3.4 mmol/L; ABG HCO3 24 mmol/L (21-25); ABG Oxygen Saturation 99.6 % (94-97); ABG PCO2 55 mmHg (35-45); ABG PH 7.25 (7.35-7.45); ABG PO2 364 mmHg (83-108); ABG TCO2 26 mmol/L (19-24); Allen Test Performed? Yes
[2020-03-25] MEDS: IPRATROPIUM-ALBUTEROL 3 ML NEB INHALATION SCH ×5 (03:17→21:02)
--- NOTE | 2020-03-25 05:17 | PN ---
PROGRESS NOTE DATE OF SERVICE: 03/24/2020 REASON FOR FOLLOWUP: Pneumonia. INTERVAL HISTORY: The patient is currently afebrile. Patient is breathing comfortably. Patient denies any chest pain. Minimal cough. No abdominal pain. No diarrhea. PHYSICAL EXAMINATION: Blood pressure 144/75 with a pulse of 86, temperature is 97.8, he is 95% on 4 L nasal cannula. General description is an elderly male up in the bed in no distress. Respiratory system: Unlabored breathing, decreased breath sounds in the base, with no wheeze. Heart S1, S2. Regular rate and rhythm. Abdomen is soft, no tenderness. LABS: No new labs been obtained today. Sputum showing Cele. DIAGNOSTIC IMPRESSION AND PLAN: Patient admitted with right upper lobe pneumonia with concern for possible aspiration. The patient is covered with Zosyn. Sputum negative for pathogen and continue supportive care. MMODL / IJN: [id number] /
[2020-03-25] MEDS: PIPERACILLIN-TAZOBACTAM 3.375 GM in SODIUM CHLORIDE 0.9% 100 ML IVPB SCH ×3 (06:13→20:28)
[2020-03-25] MEDS: methylPREDNISolone SOD SUCCI 125 MG/2 ML VIAL IV SCH ×3 (06:13→18:00)
[2020-03-25] MEDS: SODIUM CHLORIDE 0.9% 1,000 ML IV SCH ×2 (06:18→22:33)
[2020-03-25] MEDS: INSULIN ASPART (NovoLOG) 100 UNIT/ML VIAL SQ SCH ×4 (06:20→20:28)
[2020-03-25 06:21] LABS: Glucose,Whole Blood 119 mg/dL (75-99)
[2020-03-25] MEDS: METOPROLOL TARTRATE 50 MG TAB PO SCH ×2 (08:34→20:28)
[2020-03-25] MEDS: LORATADINE 10 MG TAB PO SCH (08:34)
[2020-03-25] MEDS: ASPIRIN 81 MG PO SCH (08:34)
[2020-03-25] MEDS: SYMBICORT 160-4.5 MCG INHALER INHALATION SCH ×2 (08:40→21:02)
[2020-03-25] MEDS: SODIUM CHLORIDE 0.65% NASAL SPRAY 44 ML BTL NASAL SCH ×2 (08:43→22:33)
[2020-03-25 10:02] LABS: Basophils # (A) 0.1 k/uL (0-0.2); Basophils % (A) 0 %; Eosinophils % (A) 0 %; HCT 39.5 % (39.0-53.0); HGB 12.7 gm/dL (13.0-17.5); Hypochromasia Slight; Lymphocytes # (A) 0.2 k/uL (1.0-4.8); Lymphocytes % (A) 1 %; MCH 31.8 pg (25.0-35.0); MCHC 32.1 g/dL (31.0-37.0); MCV 99.3 fL (80.0-100.0); Mean Platelet Volume 7.1; Monocytes # (A) 0.6 k/uL (0-1.0); Monocytes % (A) 2 %; Neutrophils # (A) 35.7 k/uL (1.3-7.7); Neutrophils % (A) 97 %; Platelet Count 382 k/uL (150-450); RBC 3.98 m/uL (4.30-5.90); RDW 13.7 % (11.5-15.5); WBC 36.8 k/uL (3.8-10.6)
[2020-03-25] MEDS: THIAMINE 100 MG TAB PO SCH (11:24)
[2020-03-25] MEDS: MULTIVITAMINS, THERA 1 EACH TAB PO SCH (11:24)
[2020-03-25] MEDS: FOLIC ACID 1 MG TAB PO SCH (11:24)
[2020-03-25 12:22] LABS: Glucose,Whole Blood 100 mg/dL (75-99)
[2020-03-25 13:50] LABS: Toxic Granulation Present
[2020-03-25 13:51] LABS: Anisocytosis (M) Present; Poikilocytosis (M) Present; Target Cells Present
[2020-03-25] MEDS: ALPRAZolam 0.25 MG TAB PO PRN (15:31)
[2020-03-25 15:46] LABS: Anion Gap 13.1 mmol/L (4.00-12.00); BUN/Creat Ratio 31.43 Ratio (12.00-20.00); Calcium 8.2 mg/dL (8.7-10.3); Carbon Dioxide 22.9 mmol/L (21.6-31.8); Non-African American GFR(CKD) 47.4 (60.0-200.0); Potassium 4.5 mmol/L (3.5-5.5)
[2020-03-25 16:54] LABS: Glucose,Whole Blood 121 mg/dL (75-99)
--- NOTE | 2020-03-25 17:21 | PN ---
PROGRESS NOTE DATE OF SERVICE: 03/25/2020 This 80-year-old gentleman who was admitted with COPD exacerbation, bilateral pneumonia also had right hilar mass. Yesterday the patient has taken a turn for the worse. Patient had significant difficulty with respiratory failure which is aggravated and currently the patient is mildly confused also. Most recent chest x-ray done today which I reviewed personally showed bilateral lower lobe pneumonia and Dr. De La Cruz has seen the patient and recommended possible palliative care. Infectious Disease following the patient closely. Sputum culture showed Cele glabrata. Past medical history reviewed. REVIEW OF SYSTEMS: Cardiovascular system: No angina. Respirations: As mentioned earlier. GI: As mentioned. : No dysuria. NERVOUS SYSTEM: As mentioned earlier. MEDICATIONS: Reviewed and include: [place], Xanax, aspirin, Symbicort, folic acid, Claritin. Doses reviewed. PHYSICAL EXAM: Patient is alert and oriented x2. Pulse 70. Blood pressure 125/62. Respiration 24, temperature normal, pulse ox 91% on 8 L high-flow nasal cannula. HEENT: Conjunctivae normal. NECK: No JVD. CARDIOVASCULAR: S1, S2 muffled. RESPIRATION: Breath sounds diminished in the bases. Bilateral scattered rhonchi and crackles. ABDOMEN: Soft, nontender. LEGS are no edema. No swelling. NERVOUS SYSTEM: Diffusely weak. LABS: WBC 36.6 and ABGs noted. Glucose 119. Ammonia is 41. ASSESSMENT: 1. Chronic obstructive pulmonary disease, acute exacerbation with acute bilateral pneumonia, right more than left possibly gram-negative with possible sepsis and acute hypoxic respiratory failure present on admission with slow improvement. 2. Possible right hilar mass and possible lung cancer. 3. COVID-19 ruled out. 4. Change in mental status, acute metabolic encephalopathy multifactorial possible dementia, underlying. 5. History of debility and severe protein calorie malnutrition. 6. Increased creatinine with acute tubular necrosis, acute renal failure present on admission. 7. Elevated lactic acid, possibly secondary to sepsis, present on admission. 8. Elevated D-dimer with no evidence of pulmonary embolism. 9. Relative hypotension. 10.Increased WBC possibly secondary to sepsis. 11.Significant weight loss, possibly secondary to malignancy. BMI of 13.8 indicating severe protein calorie malnutrition. history of CAD. 12.History of chronic obstructive pulmonary disease. 13.Hypertension. 14.History of bladder cancer with urostomy. 15.History of tachycardia. 16.History of ruptured duodenal ulcer at age of 31. 17.History of nicotine dependence. 18.FULL CODE with instructions. RECOMMENDATIONS AND DISCUSSION: Recommend to continue current management and continue the bronchodilators. Continue the steroids. Ensure oxygenation. The patient has significant acute respiratory acidosis. Otherwise, the prognosis is guarded. Dr. De La Cruz has recommended palliative care. We will talk with the daughter and continue to monitor. Further recommendations to follow. MMODL / IJN: [id number] /
--- NOTE | 2020-03-25 19:21 | PN ---
PROGRESS NOTE PULMONARY/CRITICAL CARE PROGRESS NOTE: DATE OF SERVICE: March 25, 2020. INTERVAL HISTORY: 80-year-old male with acute hypoxemic respiratory failure secondary to masslike consolidation in the anterior inferior aspect of the right upper lobe with some postobstructive pneumonia. He also has a right hilar mass measuring 2.7 x 2.2 cm abutting the mediastinum. This likely represents lung cancer. The patient has advanced emphysema, profound decreased appetite with weight loss, chronic and ongoing tobacco use, protein calorie malnutrition, CAD, hypertension, and bladder cancer with previous urostomy, among other things. Currently, the patient is really in bad shape. He was still on 10 L high flow. He would have to be much more stable before he could undergo any procedure. I even discussed with him the option of doing nothing at this time. He will give that some thought. It would not be unreasonable for the patient to have a palliative care consult or even hospice consult at this time. Even if we made a diagnosis of lung cancer, he would not be a surgical candidate and he would tolerate treatment very poorly including chemoradiation. Possibly, targeted therapy and/or immune therapy might be an option, but again the patient would have to be in much better shape. PHYSICAL EXAMINATION: VITAL SIGNS: Current vital signs are reviewed. Temperature 98.2. Heart rate 83, respiratory rate 28, blood pressure 136/67, mean 90 and saturations are 98% on BiPAP at 50%. When I saw him, he was on 10 L high flow. HEENT: Examination is grossly unremarkable. NECK: Supple. Full range of motion. No adenopathy. Neck veins are flat. CARDIOVASCULAR: Examination reveals regular rhythm and rate. Heart rate about 90 beats per minute. Heart sounds are distant. S1, S2 normal. LUNGS: Very coarse. There are inspiratory and expiratory rhonchi. The breath sounds are very congested-sounding. There are crackles throughout. No wheezes. ABDOMEN: Soft. Bowel sounds are heard. EXTREMITIES are intact. No cyanosis, clubbing, or edema. SKIN: Without rash. NEUROLOGIC: Examination is nonfocal. LABS: Reviewed. White count 36.8, hemoglobin 12.7, hematocrit 39.5, platelet count 382,000. Blood gas on 100% showed a pO2 of 364, pCO2 of 55 and a pH of 7.25. Sodium 147, potassium 4.5, chloride 111, CO2 23, anion gap is 13. BUN and creatinine were 44 and 1.4. Calcium was 8.2. Microbiology showing Cele glabrata in the sputum. Chest x-rays reviewed. It shows bilateral upper lobe pneumonia with consolidation at the right pulmonary hilum that is slightly worse than the prior x-ray. A brain CT showed no acute abnormality. There was diffuse cerebral atrophy and chronic small-vessel disease. His chest CT from March 20 shows no evidence of PE, advanced emphysematous changes with pulmonary fibrotic changes greatest in the upper lobes, focal consolidation and/or atelectasis anterior into right upper lobe and a suspicious anterior right mid lung mass or masslike consolidation. CURRENT MEDICATIONS: Reviewed. The patient is on Xanax, aspirin, Symbicort, folic acid, [place], insulin, DuoNeb, loratadine, magnesium replacement, Solu-Medrol, metoprolol, multivitamins, Zosyn, potassium replacement, Restoril and thiamine. ASSESSMENT: 1. Acute hypoxemic respiratory failure secondary to postobstructive pneumonia, with a right upper lobe/right hilar mass measuring 2.7 x 2.2 cm, abutting the mediastinum. 2. Chronic obstructive pulmonary disease exacerbation in a patient with advanced emphysema as well as upper lobe pulmonary fibrotic changes. 3. Chronic and ongoing tobacco dependence of greater than 60 years. 4. Unexplained weight loss of approximately 30-50 pounds. 5. Protein calorie malnutrition. 6. History of coronary artery disease. 7. Hypertension. 8. History of urostomy for bladder cancer. 9. History of ruptured duodenal ulcer, many years ago. COVID testing negative. PLAN: The patient would have to be in much better shape before anyone would anticipate a biopsy. The patient may not even survive sedation and/or general anesthesia for the biopsy to be done. In addition, he would certainly not be a surgical candidate and chemo/radiation will be very difficult on the patient. We will continue to follow. The goal is to get him out of the hospital and re-evaluate him as an outpatient. No additional recommendations are made. Prognosis is poor. He has severe anorexia/cachexia syndrome. MMODL / IJN: [id number] /
[2020-03-25] MEDS ORDERED: FUROSEMIDE 10 MG/ML 4 ML VIAL IV STA (19:23)
[2020-03-25 20:24] LABS: Glucose,Whole Blood 159 mg/dL (75-99)
--- NOTE | 2020-03-25 23:18 | PN ---
PROGRESS NOTE DATE OF SERVICE: 03/25/2020 REASON FOR FOLLOWUP: Pneumonia. INTERVAL HISTORY: Patient is currently afebrile. The patient noticed to have worsening of his respiratory status with the patient transferred to telemetry and started on BiPAP, already mentioned any vomiting or diarrhea. PHYSICAL EXAMINATION: Blood pressure 132/74, pulse of 87, temperature 97.4. He is 98% on BiPAP. General description is an elderly male lying in bed in no distress. Respiratory system: Unlabored breathing, decreased breath sounds at bases. No wheeze. Heart S1, S2. Regular rate and rhythm. Abdomen soft, no tenderness. LABS: Hemoglobin 12.1, white count 6.9, BUN of 44, creatinine is 1.4. Sputum is Cele albicans. DIAGNOSTIC IMPRESSION AND PLAN: Patient with acute respiratory failure, which is multifactorial in this patient complaining of the patient is covered with Zosyn. Did have worsening respiratory status and did have significant elevated white count more likely steroid effect. Continue Zosyn. Sputum has been negative for resistant pathogen and monitor clinical course closely. MMODL / IJN: [id number] /
[2020-03-26] MEDS: methylPREDNISolone SOD SUCCI 125 MG/2 ML VIAL IV SCH ×4 (00:03→17:19)
[2020-03-26] MEDS: ALPRAZolam 0.25 MG TAB PO PRN ×2 (00:03→09:53)
[2020-03-26] MEDS: IPRATROPIUM-ALBUTEROL 3 ML NEB INHALATION SCH ×6 (00:47→19:32)
[2020-03-26] MEDS: PIPERACILLIN-TAZOBACTAM 3.375 GM in SODIUM CHLORIDE 0.9% 100 ML IVPB SCH ×3 (03:56→20:21)
[2020-03-26 06:23] LABS: Glucose,Whole Blood 160 mg/dL (75-99)
[2020-03-26] MEDS: INSULIN ASPART (NovoLOG) 100 UNIT/ML VIAL SQ SCH ×4 (06:27→20:22)
[2020-03-26] MEDS: SYMBICORT 160-4.5 MCG INHALER INHALATION SCH ×2 (08:42→19:32)
[2020-03-26 08:47] LABS: Basophils # (A) 0.1 k/uL (0-0.2); Basophils % (A) 0 %; Eosinophils # (A) 0.1 k/uL (0-0.7); Eosinophils % (A) 0 %; HCT 40.9 % (39.0-53.0); HGB 12.8 gm/dL (13.0-17.5); Lymphocytes # (A) 0.3 k/uL (1.0-4.8); Lymphocytes % (A) 1 %; MCH 30.8 pg (25.0-35.0); MCHC 31.2 g/dL (31.0-37.0); MCV 98.7 fL (80.0-100.0); Mean Platelet Volume 7.1; Monocytes # (A) 0.7 k/uL (0-1.0); Monocytes % (A) 1 %; Neutrophils # (A) 50.9 k/uL (1.3-7.7); Neutrophils % (A) 98 %; Platelet Count 464 k/uL (150-450); RBC 4.15 m/uL (4.30-5.90)
[2020-03-26 08:51] LABS: WBC 52.2 k/uL (3.8-10.6)
[2020-03-26] MEDS: SODIUM CHLORIDE 0.65% NASAL SPRAY 44 ML BTL NASAL SCH ×2 (09:52→22:23)
[2020-03-26] MEDS: METOPROLOL TARTRATE 50 MG TAB PO SCH ×2 (09:53→20:22)
[2020-03-26] MEDS: THIAMINE 100 MG TAB PO SCH (09:53)
[2020-03-26] MEDS: ASPIRIN 81 MG PO SCH (09:53)
[2020-03-26] MEDS: MULTIVITAMINS, THERA 1 EACH TAB PO SCH (09:53)
[2020-03-26] MEDS: LORATADINE 10 MG TAB PO SCH (09:53)
[2020-03-26] MEDS: FOLIC ACID 1 MG TAB PO SCH (09:54)
[2020-03-26 10:25] LABS: Calcium 8.4 mg/dL (8.4-10.2); Potassium 3.6 mmol/L (3.5-5.1)
[2020-03-26 11:46] LABS: Glucose,Whole Blood 168 mg/dL (75-99)
[2020-03-26] MEDS ORDERED: DEXTROSE 5% IN WATER 1,000 ML IV SCH ×2 (14:30→15:45)
[2020-03-26 16:52] LABS: Glucose,Whole Blood 179 mg/dL (75-99)
[2020-03-26] MEDS: SODIUM CHLORIDE 0.9% 1,000 ML IV SCH (17:06)
--- NOTE | 2020-03-26 18:28 | PN ---
PROGRESS NOTE DATE OF SERVICE: 03/26/2020 This 80-year-old gentleman who was admitted with multiple medical problems including COPD acute exacerbation, acute bilateral pneumonia, right more than the left, also had right hilar mass. The patient had taken a turn for the worse yesterday. The patient being closely monitored. I discussed the case at length with the sister who agreed to have NO CODE, NO CPR status and continue to monitor. Palliative care is a possibility. Dr. De La Cruz is following the patient closely. The patient was considered for a needle biopsy and bronchoscopy, but his general condition continues to be extremely poor. The patient is not able to withstand any procedure at this point. He is not a surgical candidate also at this time. Past medical history reviewed. REVIEW OF SYSTEMS: Could not be taken, the patient is confused. CURRENT MEDICATIONS: Mitchell 5 mg, DuoNeb, aspirin, Symbicort, folic acid, NovoLog, Claritin, Solu-Medrol, Lopressor, replacement protocol, Restoril. PHYSICAL EXAM: Patient is alert, oriented x 2. Pulse is 72. Blood pressure 134/70, respiration 30, temperature 97.9, pulse ox 94 percent BiPAP on 50% FiO2. HEENT: Conjunctivae normal. NECK: No JVD. CARDIOVASCULAR: S1, S2 muffled. RESPIRATORY: Breath sounds diminished in the bases. Bilateral scattered rhonchi and crackles. ABDOMEN: Soft. Nontender. LEGS are no edema. No swelling. NERVOUS SYSTEM: No focal deficits. LABS: At this time shows WBC 52.2, hemoglobin 12.2, sodium 147, creatinine is 2.1. ASSESSMENT: 1. Chronic obstructive pulmonary disease acute exacerbation with acute bilateral pneumonia, right more than the left with possibly gram-negative with possible sepsis and acute hypoxic respiratory failure, present on admission, with slow improvement. 2. Possible right hilar mass and possible lung cancer. 3. Change in mental status, acute metabolic encephalopathy, multifactorial, possibly dementia, underlying. 4. Acute renal failure, acute tubular necrosis. 5. COVID-19 ruled out. 6. History of debility and severe protein calorie malnutrition. 7. Increased creatinine with acute renal failure, acute tubular necrosis present on admission. 8. Elevated lactic acid, possibly secondary to sepsis present on admission. 9. Elevated D-dimer with no evidence of pulmonary embolism. 10.Relative hypotension. 11.Increased WBC possibly secondary to sepsis. 12.Significant weight loss, possibly secondary to malignancy. BMI of 13.8 indicating severe protein calorie malnutrition. 13.History of coronary artery disease. 14.History of chronic obstructive pulmonary disease. 15.Hypertension. 16.History of bladder cancer with urostomy. 17.History of bradycardia. 18.History of ruptured duodenal ulcer at age of 31. 19.History of nicotine dependence. 20.FULL CODE with instructions. RECOMMENDATIONS AND DISCUSSION: Continue current medications, management and symptomatic treatment. Continue the bronchodilators. Continue with antibiotics. We will continue to monitor. I would recommend a short course of IV fluids cautiously and continue to monitor and repeat chest x-ray. Further recommendations to follow. See orders for details. MMODL / IJN: [id number] /
--- NOTE | 2020-03-26 19:16 | PN ---
PROGRESS NOTE PULMONARY/CRITICAL CARE PROGRESS NOTE: DATE OF SERVICE: 03/26/2020 This is a 80-year-old gentleman with a history of acute hypoxemic respiratory failure secondary to postobstructive pneumonia, with a right hilar mass measuring 2.7 x 2.2 cm. The lesion is abutting the mediastinum. In addition, he has a history of COPD with COPD exacerbation and pulmonary fibrotic changes. The patient has chronic and ongoing tobacco dependence of more than 60 years. Yesterday, we talked about the fact that the patient was really not in any shape for biopsy. He would have to be in much better condition than he is currently. In addition, even if he did have a biopsy and it was positive for malignancy, the patient really would not be a good candidate for any therapy in my opinion. Anyway, I gave him some thoughts and things to think about and he was going to do that. He does have a history of significantly unexplained weight loss, CAD, hypertension, bladder cancer with subsequent urostomy and ruptured duodenal ulcer many years back. Currently, the patient is still release receiving high-flow O2 at 15 L/minute. PHYSICAL EXAMINATION: VITAL SIGNS: Temperature is 97.9, heart rate 72, respiratory rate is 38, blood pressure 134/76, mean 95. Apparently somebody put him on BiPAP. He is currently on BiPAP at 50% with saturations of 94%. He was quite congested and very tachypneic when I saw him earlier. He is now a NO CODE. HEENT: Examination is grossly unremarkable. When I saw the patient early, he was on high-flow nasal cannula. NECK: Supple. Full range of motion. CARDIOVASCULAR: Examination reveals distant heart sounds. Heart rate 72. S1, S2 normal. LUNGS: Reveal diffuse coarse bilateral rhonchi. Breath sounds are diminished. ABDOMEN: Soft. Bowel sounds are heard. EXTREMITIES are intact. No cyanosis, clubbing, or edema. SKIN: Without rash. NEUROLOGIC: Examination is brief but nonfocal. White count 52.2, hemoglobin 12.8, hematocrit 40.9, platelet count 464,000, sodium 147, potassium 3.6, chloride 111, CO2 24, anion gap is 12. BUN and creatinine were 64 and 2.13. I did switch the fluids to D5W. Microbiology showing Cele glabrata in the sputum. No recent chest x-ray. CURRENT MEDICATIONS: Include Xanax, aspirin, Symbicort, D5W, folic acid, [place], insulin, DuoNeb, Claritin, magnesium replacement, Solu-Medrol, metoprolol, Zosyn, multivitamins, potassium replacement, saline nasal rinse, Restoril and thiamine. ASSESSMENT: 1. Acute hypoxemic respiratory failure secondary to postobstructive pneumonia with a right upper lobe/right hilar mass measuring 2.7 x 2.2 cm, abutting the mediastinum. 2. Chronic obstructive pulmonary disease exacerbation in a patient with advanced emphysema as well as upper lobe pulmonary fibrotic changes. 3. Chronic and ongoing tobacco use, more than 60 years. 4. 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 5. Protein-calorie malnutrition. 6. History of coronary artery disease. 7. Hypertension. 8. History of urostomy for bladder cancer. 9. History of ruptured duodenal ulcer, many years ago. 10.COVID testing negative. PLAN: The patient apparently has made himself a DNR. I think that is not inappropriate. Again, I explained to the patient that he would have to be much more stable to undergo any kind of a biopsy. His overall prognosis is poor. He might give some consideration to palliative care or hospice. We will let the primary talk to him about that. No additional recommendations are made. Overall prognosis is poor. MMODL / IJN: [id number] /
[2020-03-26 20:10] LABS: Glucose,Whole Blood 196 mg/dL (75-99)
[2020-03-26 20:53] LABS: Glucose,Whole Blood 217 mg/dL (75-99)
[2020-03-26] MEDS ORDERED: ANIDULAFUNGIN 200 MG in SODIUM CHLORIDE 0.9% 200 ML IVPB ONE (22:20)
[2020-03-27] MEDS: methylPREDNISolone SOD SUCCI 125 MG/2 ML VIAL IV SCH ×3 (00:07→10:21)
[2020-03-27] MEDS: IPRATROPIUM-ALBUTEROL 3 ML NEB INHALATION SCH ×5 (00:24→16:21)
--- NOTE | 2020-03-27 01:45 | PN ---
PROGRESS NOTE DATE OF SERVICE: 03/26/2020 REASON FOR FOLLOWUP: Pneumonia. INTERVAL HISTORY: The patient is currently afebrile. The patient still requiring BiPAP. He is slightly more awake and alert today. He did have some cough though not bringing up any sputum. No nausea, no vomiting. No abdominal pain, no diarrhea. PHYSICAL EXAMINATION: Blood pressure 137/65 with a pulse of 84, temperature 97.1. He is 100% on BiPAP. General description is an elderly male up in the bed in no distress. RESPIRATORY SYSTEM: Unlabored breathing, coarse breath sounds at the bases bilaterally. No wheeze. HEART: S1, S2. Regular rate and rhythm. ABDOMEN: Soft, no tenderness. LABS: Hemoglobin is 12.8, white count 52.2 with a BUN of 64, creatinine is 2.13. Sputum is Cele glabrata. Chest x-ray bilateral upper lobe pneumonia. DIAGNOSTIC IMPRESSION AND PLAN: Patient with acute hypoxic respiratory failure in this patient who did have severe chronic obstructive pulmonary disease and concern for possible postobstructive/aspiration pneumonia. Patient is currently covered with Zosyn. He did have significantly elevated white count more likely steroid effect plus-minus component of oropharyngeal candidiasis in this patient showing Cele glabrata in the sputum. Will add Eraxis and see clinical response to it and monitor his clinical course closely. MMODL / IJN: [id number] /
[2020-03-27 06:11] LABS: Glucose,Whole Blood 166 mg/dL (75-99)
[2020-03-27] MEDS: INSULIN ASPART (NovoLOG) 100 UNIT/ML VIAL SQ SCH (06:13)
--- NOTE | 2020-03-27 08:17 | XR ---
EXAMINATION TYPE: XR chest 1V portable DATE OF EXAM: 03/27/2020 COMPARISON: Prior chest x-ray 03/24/2020 HISTORY: Congestive heart failure TECHNIQUE: Single frontal view of the chest is obtained. FINDINGS: Pleural parenchymal changes are similar to prior exam. Heart size is unchanged. Aorta is d ense. No evident pneumothorax or pleural effusion. There is calcified nodule left lung base, calcifie d left hilar nodes. There is a pectus deformity present. The aorta is dense. IMPRESSION: There is not a significant interval change. Correlate for pneumonia, follow-up to resolu tion to exclude underlying mass
[2020-03-27 09:12] LABS: Calcium 7.6 mg/dL (8.4-10.2)
[2020-03-27 09:14] LABS: Basophils # (A) 0.1 k/uL (0-0.2); Basophils % (A) 0 %; Eosinophils % (A) 0 %; HCT 37.7 % (39.0-53.0); HGB 11.7 gm/dL (13.0-17.5); Hypochromasia Moderate; Lymphocytes # (A) 0.2 k/uL (1.0-4.8); Lymphocytes % (A) 0 %; MCH 31.8 pg (25.0-35.0); MCHC 31.2 g/dL (31.0-37.0); Macrocytosis Slight; Mean Platelet Volume 7.3; Monocytes # (A) 0.7 k/uL (0-1.0); Monocytes % (A) 2 %; Neutrophils # (A) 44.3 k/uL (1.3-7.7); Neutrophils % (A) 98 %; Platelet Count 357 k/uL (150-450); RBC 3.69 m/uL (4.30-5.90); RDW 13.8 % (11.5-15.5); WBC 45.4 k/uL (3.8-10.6)
[2020-03-27] MEDS: SYMBICORT 160-4.5 MCG INHALER INHALATION SCH (09:20)
[2020-03-27] MEDS: SODIUM CHLORIDE 0.65% NASAL SPRAY 44 ML BTL NASAL SCH (10:17)
[2020-03-27] MEDS: THIAMINE 100 MG TAB PO SCH (10:18)
[2020-03-27] MEDS: LORATADINE 10 MG TAB PO SCH (10:19)
[2020-03-27] MEDS: ASPIRIN 81 MG PO SCH (10:19)
[2020-03-27] MEDS: PIPERACILLIN-TAZOBACTAM 3.375 GM in SODIUM CHLORIDE 0.9% 100 ML IVPB SCH (10:19)
[2020-03-27] MEDS: FOLIC ACID 1 MG TAB PO SCH (10:19)
[2020-03-27] MEDS: METOPROLOL TARTRATE 50 MG TAB PO SCH (10:20)
[2020-03-27 11:52] LABS: Glucose,Whole Blood 333 mg/dL (75-99)
--- NOTE | 2020-03-27 15:08 | P.PN ---
Subjective Progress Note Date: 03/27/20 Principal diagnosis: Dyspnea, abnormal chest x-ray/CT This is a pleasant frail, cachectic appearing 80-year-old gentleman who follows with Bridget Bradford at the [facility]. He has a history of coronary artery disease, hypertension, chronic obstructive pulmonary disease. He has a 60 year pack per day smoking history. He is maintained on Symbicort, Spiriva, pro-air in the outpatient setting. He has been having increasing shortness of breath cough and congestion. He admits to a 30 pound weight loss over the past year. He is currently 45 kg. Denies any hemoptysis. CT angiogram ruled out pulmonary embolism. There is advanced emphysematous changes with pulmonary fibrotic changes greatest in the upper lobes. Some focal consolidation and atelectasis anterior inferior right upper lobe. More suspicious anterior right midlung mass or masslike consolidation noted. Neoplasm not excluded. He is seen today in consultation on the regular medical floor. He is currently sitting up in a chair at the bedside. Awake and alert in no acute distress. Currently maintaining O2 saturations in the mid 90s on 3 L/m per nasal cannula. White count 18.6. Hemoglobin 10.5. Lymphocytes 0.3. D-dimer 3.87. Sodium 142. Potassium 3.8. Creatinine 1.2. Ferritin level MDCCCVIII. LDH 567. C-reactive protein 315 down to 23 today. Pro-calcitonin 3.82. Influenza screen negative. Coronavirus screen negative. He has been initiated on DuoNeb inhalations, Symbicort, IV Solu-Medrol. Antibiotics in the form of Zosyn. On 03/22/2020 patient seen in follow-up on Gen. medical surgical floor. We place a consultation to interventional radiology for CT-guided fine-needle aspir ate biopsy of the right hilar mass, however the interventional radiologist felt that he would be safer to go down with a bronchoscope for a biopsy. Procedure was canceled, and as her trying to schedule the patient for a bronchoscopy today patient was already given his meal tray, and he had eaten. His vitals have been stable, room air pulse ox is 96%, hemodynamically stable, no fever or chills, r emains on IV steroids, and antibiotics in the form of Zosyn. He is on inhaled bronchodilators. Sputum culture has shown moderate PMNs, rare budding yeast, blood culture has shown no growth. No hemoptysis, no chest pain. His influenza and coronavirus screens were negative. On 03/27/2020 patient seen in follow-up on general medical surgical floor. He is awake, in no acute distress, he is very weak, he is too weak to even clear his respiratory secretions, his chest is quite congested, is currently on BiPAP, with FiO2 of 50%, he short of breath with any exertion, he is quite emaciated, denied any chest pain, denied any hemoptysis, tested negative for influenza and coronavirus. His been on antibiotics, steroids, breathing treatments, he has a right hilar mass that is suspicious for malignancy, at this point is biopsy is postponed in view of his extreme medical debility, and in view of patient being a poor candidate for any chemoradiation even in the event positive biopsy. His family made decision to proceed with palliative care consult. His daughters are at the bedside today, they decided to go with [facility], and they decided to do inpatient hospice Objective - Vital Signs Vital signs: Vital Signs Temp 97.8 F 03/27/20 04:00 Pulse 64 03/27/20 09:33 Resp 21 03/27/20 04:00 BP 132/73 03/27/20 04:00 Pulse Ox 99 03/27/20 04:00 Intake & Output 03/26/20 03/27/20 03/27/20 18:59 06:59 18:59 Intake Total 1060 222 Output Total 400 200 Balance 660 -200 222 Weight 35.5 kg Intake: Intake, IV Titration 260 Amount Dextrose 5% in Water 1, 160 000 ml @ 20 mls/hr IV . Q24H [facility] Rx#:[id number] Piperacillin-Tazobactam 3 100 .375 gm In Sodium Chloride 0.9% 100 ml @ 25 mls/hr IVPB Q12HR [facility] Rx #:[id number] Oral 800 222 Output: Urine 400 200 Other: Voiding Method Ileal Conduit (Right) Ileal Conduit (Right) # Voids 0 1 # Bowel Movements 0 1 - Exam GENERAL EXAM: Alert, very pleasant, 80-year-old white male, quite emaciated, on 2 L of oxygen and the pulse ox of 96% comfortable in no apparent distress. HEAD: Normocephalic/atraumatic. EYES: Normal reaction of pupils, equal size. Conjunctiva pink, sclera white. NOSE: Clear with pink turbinates. THROAT: No erythema or exudates. NECK: No masses, no JVD, no thyroid enlargement, no adenopathy. CHEST: No chest wall deformity. Symmetrical expansion. LUNGS: Equal air entry with no crackles, wheeze, rhonchi or dullness. CVS: Regular rate and rhythm, normal S1 and S2, no gallops, no murmurs, no rubs ABDOMEN: Soft, nontender. No hepatosplenomegaly, normal bowel sounds, no guarding or rigidity. EXTREMITIES: No clubbing, no edema, no cyanosis, 2+ pulses and upper and lower extremities. MUSCULOSKELETAL: Muscle strength and tone normal. SPINE: No scoliosis or deformity SKIN: No rashes CENTRAL NERVOUS SYSTEM: Alert and oriented -3. No focal deficits, tone is normal in all 4 extremities. PSYCHIATRIC: Alert and oriented -3. Appropriate affect. Intact judgment and insight. - Labs CBC & Chem 7: 03/27/20 08:15 03/27/20 08:15 Labs: Abnormal Lab Results - Last 24 Hours (Table) 03/26/20 03/26/20 03/26/20 Range/Units 16:39 20:09 20:52 WBC (3.8-10.6) k/uL RBC (4.30-5.90) m/uL Hgb (13.0-17.5) gm/dL Hct (39.0-53.0) % MCV (80.0-100.0) fL Neutrophils # (1.3-7.7) k/uL Lymphocytes # (1.0-4.8) k/uL Chloride (98-107) mmol/L BUN (9-20) mg/dL Creatinine (0.66-1.25) mg/dL Glucose (74-99) mg/dL POC Glucose (mg/dL) 179 H 196 H 217 H (75-99) mg/dL Calcium (8.4-10.2) mg/dL 03/27/20 03/27/20 03/27/20 Range/Units 06:09 08:15 08:15 WBC 45.4 H (3.8-10.6) k/uL RBC 3.69 L (4.30-5.90) m/uL Hgb 11.7 L (13.0-17.5) gm/dL Hct 37.7 L (39.0-53.0) % MCV 102.0 H (80.0-100.0) fL Neutrophils # 44.3 H (1.3-7.7) k/uL Lymphocytes # 0.2 L (1.0-4.8) k/uL Chloride 108 H (98-107) mmol/L BUN 84 H (9-20) mg/dL Creatinine 2.72 H (0.66-1.25) mg/dL Glucose 170 H (74-99) mg/dL POC Glucose (mg/dL) 166 H (75-99) mg/dL Calcium 7.6 L (8.4-10.2) mg/dL 03/27/20 Range/Units 11:50 WBC (3.8-10.6) k/uL RBC (4.30-5.90) m/uL Hgb (13.0-17.5) gm/dL Hct (39.0-53.0) % MCV (80.0-100.0) fL Neutrophils # (1.3-7.7) k/uL Lymphocytes # (1.0-4.8) k/uL Chloride (98-107) mmol/L BUN (9-20) mg/dL Creatinine (0.66-1.25) mg/dL Glucose (74-99) mg/dL POC Glucose (mg/dL) 333 H (75-99) mg/dL Calcium (8.4-10.2) mg/dL Microbiology - Last 24 Hours (Table) 03/20/20 14:35 Blood Culture - Final Blood No Growth after 144 hours Assessment and Plan Plan: Assessment 1 Acute hypoxic respiratory failure secondary to masslike consolidation in the anterior inferior aspect of the right upper lobe with some suspected postobstructive pneumonia, anterior right hilar mass measuring 2.7 x 2.2 cm abutting the mediastinum. 2 Acute exacerbation of chronic obstructive pulmonary disease with advanced underlying emphysematous changes and pulmonary fibrotic changes of the upper lobes 3 Chronic and ongoing tobacco dependence of greater than 60 years 4 Unexplained weight loss of approximately 30 pounds 5 Protein calorie malnutrition 6 History of coronary artery disease 7 Hypertension 8 History of bladder cancer with urostomy 9 History of ruptured duodenal ulcer many years ago. 10 Elevated d-dimer and inflammatory markers with coronavirus not detected, PE ruled out Plan: Continue current medical treatment, continue antibiotics, continue BiPAP support, breathing treatments and steroids. Patient is still requiring high flow oxygen, and BiPAP support, he is quite weak, congested, and he is even too weak to clear his respiratory secretions, at this point his family made a decision to proceed with palliative care consult, and they're considering [facility] for inpatient hospice, they declined biopsy of the right hilar mass as the great that the patient is a poor candidate for any treatment. I performed a history & physical examination of the patient and discussed their management with my nurse practitioner, Monika Mcadams. I reviewed the nurse practitioner's note and agree with the documented findings and plan of care. Lung sounds are positive for diminished breath sounds. The findings and the impression was discussed with the patient. I attest to the documentation by the nurse practitioner. Time with Patient: Less than 30
--- NOTE | 2020-03-27 16:57 | PN ---
PROGRESS NOTE DATE OF SERVICE: 03/27/2020 INTERVAL HISTORY: This is a 80-year-old woman who was admitted with COPD exacerbation, as well as right lower lobe pneumonia, was not a candidate for any diagnostic intervention. The patient was too weak for any direct biopsy. The patient also was too weak for any bronchoscopy biopsy, also while in the hospital despite intensive treatment patient condition still deteriorating. Patient is significantly short of breath. The patient needs BiPAP for adequate saturation. Chest x-ray showed some worsening. Case was discussed with Dr. De La Cruz who recommended hospice care and the case was discussed with the daughter on multiple occasions over the phone and the family would like to go with hospice care at this time. Patient is being closely monitored in the telemetry unit at this time. PAST MEDICAL HISTORY: Reviewed. REVIEW OF SYSTEMS: Could not be taken as the patient is on BiPAP. CURRENT MEDICATIONS: Reviewed include [place], DuoNeb, Xanax, antifungal, folic acid, NovoLog, Claritin, Solu- Medrol. PHYSICAL EXAM: GENERAL: Patient is stuporous. VITAL SIGNS: Pulse 67, blood pressure 136/73, respirations 22, temperature 97.8, pulse ox 98% on BIPAP. HEENT: Conjunctivae normal. Oral mucosa moist. NECK: No jugular venous distention. RESPIRATORY: Breath sounds diminished at the bases. A few scattered rhonchi and crackles. HEART: S1 and S2, muffled. ABDOMEN: Soft, no tenderness. EXTREMITIES: No edema, no swelling. NERVOUS: No focal deficits. LABS: WBC 45.2, hemoglobin 11.7, creatinine is 2.72. ASSESSMENT: 1. Chronic obstructive pulmonary disease acute exacerbation with acute bilateral pneumonia, right more the left with possibly gram-negative with possible sepsis and acute hypoxic respiratory failure present on admission with slow improvement. 2. Cele glabrata from the sputum. 3. Right hilar mass, possibly lung cancer. 4. Change in mental status secondary to metabolic encephalopathy multifactorial possible dementia, underlying. 5. Acute renal failure with acute tubular necrosis. 6. COVID-19 ruled out. 7. History of debility. 8. Severe protein calorie malnutrition. 9. Increased creatinine with acute renal failure, acute tubular necrosis present on admission. 10.Elevated lactic acid, possibly secondary to sepsis present on admission. 11.Elevated D-dimer with no evidence of pulmonary embolism. 12.Relative hypotension. 13.Increased WBC possibly secondary to sepsis. 14.Significant weight loss, possibly secondary to malignancy. BMI of 13.8, indicating severe protein calorie malnutrition. 15.History of coronary artery disease. 16.History of chronic obstructive pulmonary disease. 17.Hypertension. 18.History of bladder cancer with urostomy. 19.History of bradycardia. 20.History of ruptured duodenal ulcer the age of 31. 21.History of nicotine dependence. 22.NO CODE, NO CPR, NO VENT. 23.Hospice care recommend. RECOMMENDATIONS AND DISCUSSION: I recommend to continue the hospice instructions and consider morphine drip if the patient is restless and oxygen support. Otherwise, continue the rest of the medications. Prognosis is extremely guarded because of multiple complex medical issues. Further recommendations to follow. MMODL / IJN: [id number] /
[2020-03-27 18:22] VITALS: RESP 36
[2020-03-27 18:23] VITALS: BP 130/68; PULSE 78; TEMP 97
[2020-03-27] MEDS ORDERED: ANIDULAFUNGIN 100 MG in SODIUM CHLORIDE 0.9% 100 ML IVPB SCH (21:00)
== END 2020-03-27 16:00 | disposition hospice, inpatient (51) | DRG 871 ==
LOC: EC 12:02 → 4SSUR 14:38 → 3SCARD 03-25 02:54
PROVIDERS: ADMIT Hospitalist; ATTEND Hospitalist
PROC: 5A09457 Assistance with Respiratory Ventilation, 24-96 Consecutive Hours, Continuous Positive Airway Pressure (ICD-10-PCS; principal; 2020-03-26)
DX: A41.50 Gram-negative sepsis, unspecified (principal); J15.6 Pneumonia due to other Gram-negative bacteria; J96.01 Acute respiratory failure with hypoxia; E43 Unspecified severe protein-calorie malnutrition; G93.41 Metabolic encephalopathy; N17.0 Acute kidney failure with tubular necrosis; B37.0 Candidal stomatitis; B37.89 Other sites of candidiasis; Z68.1 Body mass index [BMI] 19.9 or less, adult; E87.2 Acidosis; J98.11 Atelectasis; R64 Cachexia; C34.01 Malignant neoplasm of right main bronchus; Z20.828 Contact with and (suspected) exposure to other viral communicable diseases; Z66 Do not resuscitate; Z51.5 Encounter for palliative care; E86.0 Dehydration; F17.210 Nicotine dependence, cigarettes, uncomplicated; Z85.51 Personal history of malignant neoplasm of bladder; Z90.6 Acquired absence of other parts of urinary tract; Z93.6 Other artificial openings of urinary tract status; I10 Essential (primary) hypertension; I25.10 Atherosclerotic heart disease of native coronary artery without angina pectoris; J43.9 Emphysema, unspecified; R62.7 Adult failure to thrive; Z53.09 Procedure and treatment not carried out because of other contraindication; Z63.8 Other specified problems related to primary support group; Z79.82 Long term (current) use of aspirin; Z79.899 Other long term (current) drug therapy; Z86.73 Personal history of transient ischemic attack (TIA), and cerebral infarction without residual deficits; Z87.11 Personal history of peptic ulcer disease; F03.90 Unspecified dementia, unspecified severity, without behavioral disturbance, psychotic disturbance, mood disturbance, and anxiety; R79.1 Abnormal coagulation profile
CPT/HCPCS: 36415; 36600; 70450; 71045; 71046; 71275; 74176; 80048; 80053; 82140; 82533; 82550; 82728; 82805; 83605; 83615; 83735; 83880; 84145; 84484; 85025; 85379; 85610; 85730; 86140; 87040; 87070; 87205; 87502; 87635; 93005; 94640; 94660; 94760; 96361; 96374; 99291

== ENCOUNTER 2020-03-27 14:18 | Inpatient (IN) | payer MEDICAID ==
[2020-03-27] MEDS ORDERED: LORazepam 2 MG/ML INJ IV PRN (14:23)
[2020-03-27] MEDS ORDERED: ATROPINE OPHTH SOLN 1% 5ML BTL SUBLINGUAL PRN (14:23)
[2020-03-27] MEDS ORDERED: SCOPOLAMINE 1.5MG/72HR PATCH TRANSDERM SCH (14:30)
[2020-03-27] MEDS: MORPHINE SULFATE (100 MG/2 ML) 100 MG in SODIUM CHLORIDE 0.9% 100 ML IV SCH (16:05)
[2020-03-28] MEDS: MORPHINE SULFATE (100 MG/2 ML) 100 MG in SODIUM CHLORIDE 0.9% 100 ML IV SCH (12:36)
[2020-03-28 16:21] VITALS: PULSE 59; RESP 10
--- NOTE | 2020-03-29 03:22 | DS ---
DISCHARGE SUMMARY PRELIMINARY CAUSE OF : Chronic obstructive pulmonary disease. OTHER DIAGNOSES: 1. Chronic obstructive pulmonary disease acute exacerbation with acute bilateral pneumonia, right more than left with possibly gram-negative sepsis with acute hypoxic respiratory failure, present on admission, with slow improvement. 2. Cele glabrata from sputum. 3. Right hilar mass, possibly lung cancer. 4. Change in mental status, metabolic encephalopathy acute, multifactorial. 5. Possible underlying dementia. 6. Acute renal failure from acute tubular necrosis. 7. COVID-19 ruled out. 8. History of debility. 9. Severe protein-calorie malnutrition. 10.Increased creatinine with acute renal failure acute tubular necrosis, present on admission. 11.Elevated lactic acid, possibly secondary to sepsis, present on admission. 12.Elevated D-dimer with no evidence of pulmonary embolism. 13.Relative hypotension. 14.Increased WBC possibly secondary to sepsis. 15.Significant weight loss, possibly secondary to malignancy, body mass index of 13.8 indicating severe protein-calorie malnutrition. 16.History of coronary artery disease. 17.History of chronic obstructive pulmonary disease. 18.Hypertension. 19.History of bladder cancer with urostomy. 20.History of bradycardia. 21.History of ruptured duodenal ulcer at the age of 31. 22.History of nicotine dependence. 23.NO CODE, NO CPR, NO VENT. 24.Hospice. HISTORY OF PRESENT ILLNESS: This 80-year-old gentleman with a past medical history of multiple medical problems admitted with COPD and pneumonia. Lung cancer was suspected, but unfortunately the patient's general condition was very poor so that an interventional biopsy or a bronchoscopy biopsy was not feasible and the patient was treated symptomatically. But despite extensive treatment along with multiple consultants, patient did not improve and subsequently the case was discussed at length the family and the family decided to go with comfort measures and hospice was consulted and the patient succumbed to his above mentioned illnesses. Prognosis remained extremely guarded throughout the hospital stay. Please refer to the multiple progress notes and consultation notes for further information. MMODL / IJN: [id number] / DUONG
== END 2020-03-28 16:26 | disposition expired | DRG 951 ==
LOC: 3SCARD 16:23
PROVIDERS: ADMIT Hospitalist; ATTEND Hospitalist
DX: Z51.5 Encounter for palliative care (principal); E43 Unspecified severe protein-calorie malnutrition; G93.41 Metabolic encephalopathy; A41.50 Gram-negative sepsis, unspecified; J15.6 Pneumonia due to other Gram-negative bacteria; J96.01 Acute respiratory failure with hypoxia; N17.0 Acute kidney failure with tubular necrosis; C34.01 Malignant neoplasm of right main bronchus; J44.1 Chronic obstructive pulmonary disease with (acute) exacerbation; J44.0 Chronic obstructive pulmonary disease with (acute) lower respiratory infection; I10 Essential (primary) hypertension; I25.10 Atherosclerotic heart disease of native coronary artery without angina pectoris; Z87.11 Personal history of peptic ulcer disease; Z87.891 Personal history of nicotine dependence; Z93.6 Other artificial openings of urinary tract status; Z85.51 Personal history of malignant neoplasm of bladder; R53.81 Other malaise; F03.90 Unspecified dementia, unspecified severity, without behavioral disturbance, psychotic disturbance, mood disturbance, and anxiety; R79.1 Abnormal coagulation profile